=== PATIENT | male | born 1950 | race African-American/Black ===

== ENCOUNTER 2023-10-22 14:33 | Outpatient (AMB) | payer MEDICARE, OTHER, SELFPAY ==
--- NOTE | 2023-10-22 14:07 | MHC.OFFVISPS ---
Intake Intake Visit Reasons: depression, panic attacks, ETHAN (generalized anxiety disorder) Medication List - Last Reconciled 10/22/23 by Puja Conley APRN apixaban (Eliquis) 5 mg PO BID atorvastatin 10 mg PO DAILY buspirone 10 mg PO TID cholecalciferol (vitamin D3) (Vitamin D3) 25 mcg PO DAILY folic acid PO lamotrigine ER 200 mg PO DAILY latanoprost 0.005% drroslyn ophthalmic (eye) lorazepam 0.5 mg PO DAILY losartan 100 mg PO DAILY mirtazapine 30 mg PO BEDTIME nifedipine ER 60 mg PO DAILY omeprazole 40 mg PO DAILY terazosin mg PO HPI- Psychiatric Chief Complaint: depression, panic attacks, ETHAN (generalized anxiety disorder) HPI Narrative: Pt reports mood is stable; He reports medications have helped him depression; he has low mood at times; low motivation; he tries to keep busy to cope; He reports anxiety and worry specifically about his 's health- she is falling frequently. Her doctors can not figure out why she is falling. He tries to protect her but the falls have happened without warning signs such as dizziness, gait imbalance, or sedation. Pt will try to attend her next MD appt to express his concern. . He reports less depression. He reports few panic attacks. Pt is sleeping well. Pt is adherent with meds; he takes the ativan approximately 2-3 times a week. He is taking lamictal- no rash-no side effects. Pt takes his BP daily and reports BP has been stable- pt is sleeping well; pt reports his Blood sugar has been stable; No SI and no HI. He reports no ETOH since April 2021. Past Psychiatric History: inpatient [place] retreat 2018; [facility] 2020 PHP/IOP [facility] fall of 2018 and 2020 (May) outpatient [facility] outpatient, Dr. Thakkar Jun-Jul 2019, started with this news writer September 2019 after going to [facility] with panic attack. Panic attacks: Yes Agoraphobia: No Separation anxiety disorder: No Social phobia: No Specific phobia: No Hypochondriasis: No Body dysmorphic disorder: No Obsessive compulsive disorder: No Generalized anxiety: Yes Post traumatic stress disorder: No Acute stress disorder: No Previous psychiatric history: Yes Previous inpatient psychiatric hospitalization: Yes Other previous psychiatric treatment programs: intensive outpatient program History of suicidal ideation: Yes History of suicide attempt: No Medically hospitalized: Yes History of self injurious behavior: No History of violence: No Current/previous psychiatrist: Yael Current/previous therapist: none Subjective Subjective Subjective Medication Compliance: Yes Side effects from medications: No Review of Systems Medical Review of Systems: unchanged Mental Status Exam Mental Status Exam Patient Appearance: Well Grooomed and Appropriate Patient Orientation: Person, Place, Time and Situation Level of Consciousness: Awake and Alert Patient Behavior: Appropriate and Anxious Mood Description: Anxious and Nervous Affect Description: Anxious Patient Cognition Impaired: No Ability to Follow Directions: Good Speech Pattern: Clear Hallucinations: None Thought Process: Intact and Goal Oriented Thought Content: positive for Intact and positive for Goal Oriented Judgement: Fair Assessment and Plan Assessment & Plan (1) Generalized anxiety disorder: Code(s): F41.1 - Generalized anxiety disorder (2) Panic attacks: Status: Acute Code(s): F41.0 - Panic disorder [episodic paroxysmal anxiety] (3) Major depressive disorder, recurrent, moderate: Status: Acute Code(s): F33.1 - Major depressive disorder, recurrent, moderate Plan continue current prescribed medications increase fluid intake return in 2 months Medications: New buspirone 15 mg (1.5 x 10 mg) PO BID 90 tabs 2RF lamotrigine ER 200 mg PO DAILY 30 tabs 2RF folic acid 0.4 mg PO DAILY 30 tabs 2RF lorazepam 0.5 mg PO DAILY PRN 30 tabs 2RF severe anxiety mirtazapine 15 mg (1/2 x 30 mg) PO BEDTIME 15 tabs 2RF Counseling and coordination of Care Pt. Self Management counseling: General coping skills and Problem solving Medication management counseling: Effectiveness, Side effects, Dosing range, Duration, Drug interaction and Adherence Diagnosis and Prognosis Counseling: Accuracy of diagnosis, Prognosis over time, Impact of diagnosis on life functions, Impact of family relationship, Problematic behaviors secondary to diagnosis and Adequacy of current interventions Details: I spent 30 minutes reviewing the record, seeing the patient and documenting in the medical record. Counseling provided to the patient/caregiver as outlined below. Addressed patient/caregiver concerns regarding current medication regime including effective adherence. Addressed patient/caregiver concerns regarding diagnosis and prognosis including accuracy of diagnosis, prognosis over time, impact of diagnosis. Addressed patient/caregiver concerns regarding impact of recent stressors. 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
== END 2023-10-22 18:47 | disposition home or self-care (01) ==
LOC: HO.HOP 14:33
PROVIDERS: PCP Internal Medicine; Visit Provider Clinical Nurse Specialist Psychiatric/Mental Health
DX: F41.1 Generalized anxiety disorder (principal); F41.0 Panic disorder [episodic paroxysmal anxiety]; F33.1 Major depressive disorder, recurrent, moderate
CPT/HCPCS: 99214

== ENCOUNTER → 2023-10-22 14:33 | Outpatient (BNVA) | payer MEDICARE, OTHER, SELFPAY | PROVIDERS: PCP Internal Medicine; Visit Provider Clinical Nurse Specialist Psychiatric/Mental Health | DX: F41.0 Panic disorder [episodic paroxysmal anxiety] (principal); F41.1 Generalized anxiety disorder; F33.1 Major depressive disorder, recurrent, moderate; Z71.89 Other specified counseling | CPT/HCPCS: 99212 ==

== ENCOUNTER 2023-12-09 11:43 | Outpatient (AMB) | payer MEDICARE, OTHER, SELFPAY ==
--- NOTE | 2023-12-09 10:51 | MHC.OFFVISPS ---
Intake Intake Visit Reasons: anxiety, depression Community Health Planning Director Required: No Medication List - Last Reconciled 12/09/23 by Puja Conley APRN apixaban (Eliquis) 5 mg PO BID atorvastatin 10 mg PO DAILY buspirone 15 mg (1.5 x 10 mg) PO BID cholecalciferol (vitamin D3) (Vitamin D3) 25 mcg PO DAILY folic acid 0.4 mg PO DAILY lamotrigine ER 200 mg PO DAILY latanoprost 0.005% drps ophthalmic (eye) lorazepam 0.5 mg PO DAILY PRN losartan 100 mg PO DAILY mirtazapine 15 mg (1/2 x 30 mg) PO BEDTIME nifedipine ER 60 mg PO DAILY omeprazole 40 mg PO DAILY terazosin mg PO HPI- Psychiatric Chief Complaint: anxiety, depression HPI Narrative: pt doing well overall; mood stable; less anxious and less worried; no SI or HI; no medical changes. Past Psychiatric History: inpatient [place] retreat 2018; [facility] fall and 2020 (May) outpatient [facility] outpatient, Dr. Thakkar Jul 2019, started with this senior technical writer September 2019 after going to [facility] with panic attack. Subjective Subjective Subjective Medication Compliance: Yes Side effects from medications: No Review of Systems Medical Review of Systems: unchanged Mental Status Exam Mental Status Exam Patient Appearance: Well Grooomed and Appropriate Patient Orientation: Person, Place, Time and Situation Level of Consciousness: Awake Patient Behavior: Appropriate Mood Description: Calm Affect Description: Calm Patient Cognition Impaired: No Ability to Follow Directions: Good Speech Pattern: Clear and Appropriate Hallucinations: None Delusions: Not Present Thought Process: Intact Thought Content: positive for Intact Judgement: Fair Assessment and Plan Assessment & Plan (1) Major depressive disorder, recurrent, moderate: Status: Acute Code(s): F33.1 - Major depressive disorder, recurrent, moderate (2) Panic attacks: Status: Acute Code(s): F41.0 - Panic disorder [episodic paroxysmal anxiety] Medications: New cholecalciferol (vitamin D3) (Vitamin D3) 25 mcg PO DAILY 90 tabs 0RF Refilled buspirone 15 mg (1.5 x 10 mg) PO BID 90 tabs 2RF lamotrigine ER 200 mg PO DAILY 30 tabs 2RF folic acid 0.4 mg PO DAILY 30 tabs 2RF lorazepam 0.5 mg PO DAILY PRN 30 tabs 2RF severe anxiety mirtazapine 15 mg (1/2 x 30 mg) PO BEDTIME 15 tabs 2RF Counseling and coordination of Care Pt. Self Management counseling: Maintenance-social rhythm, Mod caffeine/ETOH intake, Sleep hygiene, Behavior activation and General coping skills Diagnosis and Prognosis Counseling: Accuracy of diagnosis, Prognosis over time, Impact of diagnosis on life functions, Impact of family relationship, Problematic behaviors secondary to diagnosis and Adequacy of current interventions Details: I spent 30 minutes reviewing the record, seeing the patient and documenting in the medical record. Counseling provided to the patient/caregiver as outlined below. Addressed patient/caregiver concerns regarding current medication regime including effective adherence. Addressed patient/caregiver concerns regarding diagnosis and prognosis including accuracy of diagnosis, prognosis over time, impact of diagnosis. Addressed patient/caregiver concerns regarding impact of recent stressors. 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
== END 2023-12-09 11:44 | disposition home or self-care (01) ==
LOC: HO.HOP 11:44
PROVIDERS: PCP Internal Medicine; Visit Provider Clinical Nurse Specialist Psychiatric/Mental Health
DX: F33.1 Major depressive disorder, recurrent, moderate (principal); F41.0 Panic disorder [episodic paroxysmal anxiety]
CPT/HCPCS: 99214

== ENCOUNTER → 2023-12-09 11:43 | Outpatient (BNVA) | payer MEDICARE, OTHER, SELFPAY | PROVIDERS: PCP Internal Medicine; Visit Provider Clinical Nurse Specialist Psychiatric/Mental Health | DX: F33.1 Major depressive disorder, recurrent, moderate (principal); F41.0 Panic disorder [episodic paroxysmal anxiety] | CPT/HCPCS: 99212 ==

== ENCOUNTER 2024-03-09 11:09 | Outpatient (AMB) | payer MEDICARE, OTHER, SELFPAY ==
--- NOTE | 2024-03-09 11:22 | A.OFFPSYCH_ITS ---
Intake Intake Visit Reasons: depression Street Light Cleaner Required: No Medication List - Last Reconciled 03/09/24 by Puja Conley APRN apixaban (Eliquis) 5 mg PO BID atorvastatin 10 mg PO DAILY buspirone 15 mg (1.5 x 10 mg) PO BID cholecalciferol (vitamin D3) (Vitamin D3) 25 mcg PO DAILY folic acid 0.4 mg PO DAILY lamotrigine ER 200 mg PO DAILY latanoprost 0.005% drroslyn ophthalmic (eye) lorazepam 0.5 mg PO DAILY PRN losartan 100 mg PO DAILY mirtazapine 15 mg (1/2 x 30 mg) PO BEDTIME nifedipine ER 60 mg PO DAILY omeprazole 40 mg PO DAILY terazosin mg PO HPI- Psychiatric Chief Complaint: depression HPI Narrative: pt reports mood stable; anxiety has been mild and he feels its been manageable; it increases in the evening and he has some trouble falling asleep and staying asleep. he wakes 2-4 times a night most nights- he is not sure what wakes him but does feel tired in am. Past Psychiatric History: inpatient [place] retreat 2018; [facility], Dr. Thakkar Jun-Jul 2019, started with this automotive service writer September 2019 after going to [facility] with panic attack. Subjective Subjective Subjective Medication Compliance: Yes Side effects from medications: No Review of Systems Medical Review of Systems: unchanged Mental Status Exam Mental Status Exam Patient Appearance: Well Grooomed and Appropriate Patient Orientation: Person, Place, Time and Situation Level of Consciousness: Awake and Alert Patient Behavior: Appropriate Mood Description: Calm and Appropriate Affect Description: Calm and Appropriate Patient Cognition Impaired: No Ability to Follow Directions: Good Speech Pattern: Clear Memory Description: Intact Hallucinations: None Delusions: Not Present Thought Process: Intact Thought Content: positive for Intact Judgement: Fair Assessment and Plan Assessment & Plan (1) Major depressive disorder, recurrent, moderate: Status: Acute Code(s): F33.1 - Major depressive disorder, recurrent, moderate (2) Panic attacks: Status: Acute Code(s): F41.0 - Panic disorder [episodic paroxysmal anxiety] Plan trial of trazodone 50 mg at bedtime continue other meds as prescribed. return in 2 months Medications: New trazodone 50 mg PO BEDTIME 30 tabs 2RF Refilled lamotrigine ER 200 mg PO DAILY 30 tabs 2RF lorazepam 0.5 mg PO DAILY PRN 30 tabs 2RF severe anxiety buspirone 15 mg (1.5 x 10 mg) PO BID 90 tabs 2RF mirtazapine 15 mg (1/2 x 30 mg) PO BEDTIME 15 tabs 2RF Counseling and coordination of Care Pt. Self Management counseling: Maintenance-social rhythm, Mod caffeine/ETOH intake and Sleep hygiene Medication management counseling: Effectiveness, Side effects, Dosing range, Duration, Drug interaction and Adherence Diagnosis and Prognosis Counseling: Accuracy of diagnosis, Prognosis over time, Impact of diagnosis on life functions, Impact of family relationship, Problematic behaviors secondary to diagnosis and Adequacy of current interventions Details: I spent 30 minutes reviewing the record, seeing the patient and documenting in the medical record. Counseling provided to the patient/caregiver as outlined below. Addressed patient/caregiver concerns regarding current medication regime including effective adherence. Addressed patient/caregiver concerns regarding diagnosis and prognosis including accuracy of diagnosis, prognosis over time, impact of d iagnosis. Addressed patient/caregiver concerns regarding impact of recent stressors. 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
== END 2024-03-09 15:09 | disposition home or self-care (01) ==
LOC: HO.HOP 11:09
PROVIDERS: PCP Internal Medicine; Visit Provider Clinical Nurse Specialist Psychiatric/Mental Health
DX: F33.1 Major depressive disorder, recurrent, moderate (principal); F41.0 Panic disorder [episodic paroxysmal anxiety]
CPT/HCPCS: 99214

== ENCOUNTER → 2024-03-09 11:09 | Outpatient (BNVA) | payer MEDICARE, OTHER, SELFPAY | PROVIDERS: PCP Internal Medicine; Visit Provider Clinical Nurse Specialist Psychiatric/Mental Health | DX: F33.1 Major depressive disorder, recurrent, moderate (principal); F41.0 Panic disorder [episodic paroxysmal anxiety]; Z71.89 Other specified counseling | CPT/HCPCS: 99212 ==

== ENCOUNTER 2024-06-06 14:41 | Outpatient (AMB) | payer MEDICARE, OTHER, SELFPAY ==
--- NOTE | 2024-06-06 14:08 | MHC.OFFVISPS ---
Intake Intake Visit Reasons: depression An/Syq 13 Nav/C2 Operator Required: Yes Provided:: Language: and An/Syq 13 Nav/C2 Operator Medication List - Last Reconciled 06/06/24 by Puja Conley APRN apixaban (Eliquis) 5 mg PO BID atorvastatin 10 mg PO DAILY buspirone 15 mg (1.5 x 10 mg) PO BID cholecalciferol (vitamin D3) (Vitamin D3) 25 mcg PO DAILY folic acid 0.4 mg PO DAILY lamotrigine ER 200 mg PO DAILY latanoprost 0.005% drps ophthalmic (eye) lorazepam 0.5 mg PO DAILY PRN losartan 100 mg PO DAILY magnesium oxide 400 mg PO DAILY metoprolol tartrate 25 mg PO BID mirtazapine 15 mg (1/2 x 30 mg) PO BEDTIME nifedipine ER 60 mg PO DAILY omeprazole 40 mg PO DAILY terazosin mg PO trazodone 50 mg PO BEDTIME HPI- Psychiatric Chief Complaint: depression HPI Narrative: pt reports mood stable; he feels tired sometimes and is not sleeping well; no depression; no significant anxiety; pt reports no ETOH use in 3 yrs. looking forward to activities this winter; planned a trip to [employer] with . Discussed he may not need as much lamotrigine as in past as mood is stable and no EtOH use. lamictal can cause insomnia sometime so we agreed to trial reduction Past Psychiatric History: [facility] [place] retreat 2018[facility] outpatient [facility] outpatient, Dr. Thakkar Jul 2019, started with this specification writer September 2019 after going to [facility] with panic attack. Subjective Subjective Subjective Medication Compliance: Yes Side effects from medications: No Review of Systems Medical Review of Systems: unchanged Mental Status Exam Mental Status Exam Patient Appearance: Well Grooomed and Appropriate Patient Orientation: Person, Place, Time and Situation Level of Consciousness: Awake and Appropriate Patient Behavior: Appropriate and Cooperative Mood Description: Calm Affect Description: Calm Patient Cognition Impaired: No Ability to Follow Directions: Excellent Speech Pattern: Clear Memory Description: Intact Hallucinations: None Delusions: Not Present Thought Process: Intact and Goal Oriented Thought Content: positive for Intact and positive for Goal Oriented Judgement: Good Assessment and Plan Assessment & Plan (1) Major depressive disorder, recurrent, moderate: Status: Acute Code(s): F33.1 - Major depressive disorder, recurrent, moderate (2) Panic attacks: Status: Acute Code(s): F41.0 - Panic disorder [episodic paroxysmal anxiety] Plan trial reduction in lamictal from 200mg to 150 mg dialy will try to get recent labs done at [facility] Medications: New lamotrigine ER (Lamictal XR) 50 mg PO DAILY 90 tabs 0RF lamotrigine ER (Lamictal XR) 100 mg PO DAILY 90 tabs 0RF Refilled buspirone 15 mg (1.5 x 10 mg) PO BID 90 tabs 2RF folic acid 0.4 mg PO DAILY 30 tabs 2RF lorazepam 0.5 mg PO DAILY PRN 30 tabs 2RF severe anxiety mirtazapine 15 mg (1/2 x 30 mg) PO BEDTIME 15 tabs 2RF trazodone 50 mg PO BEDTIME 30 tabs 2RF Discontinued lamotrigine ER Discontinued Reason: Doctor's Order 200 mg PO DAILY 90 tabs 1RF Counseling and coordination of Care Pt. Self Management counseling: Maintenance-social rhythm, Mod caffeine/ETOH intake, Sleep hygiene, Behavior activation, General coping skills and Problem solving Medication management counseling: Effectiveness, Side effects, Dosing range, Duration, Drug interaction and Adherence Diagnosis and Prognosis Counseling: Accuracy of diagnosis, Prognosis over time, Impact of diagnosis on life functions, Impact of family relationship, Problematic behaviors secondary to diagnosis and Adequacy of current interventions Details: I spent 40 minutes reviewing the record, seeing the patient and documenting in the medical record. Counseling provided to the patient/caregiver as outlined below. Addressed patient/caregiver concerns regarding current medication regime including effective adherence. Addressed patient/caregiver concerns regarding diagnosis and prognosis including accuracy of diagnosis, prognosis over time, impact of diagnosis. Addressed patient/caregiver concerns regarding impact of recent stressors. 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
== END 2024-06-06 16:24 | disposition home or self-care (01) ==
LOC: HO.HOP 14:41
PROVIDERS: PCP Internal Medicine; Visit Provider Clinical Nurse Specialist Psychiatric/Mental Health
DX: F33.1 Major depressive disorder, recurrent, moderate (principal); F41.0 Panic disorder [episodic paroxysmal anxiety]
CPT/HCPCS: 99214

== ENCOUNTER → 2024-06-06 14:41 | Outpatient (BNVA) | payer MEDICARE, OTHER, SELFPAY | PROVIDERS: PCP Internal Medicine; Visit Provider Clinical Nurse Specialist Psychiatric/Mental Health | DX: F33.1 Major depressive disorder, recurrent, moderate (principal); F41.0 Panic disorder [episodic paroxysmal anxiety]; Z71.89 Other specified counseling | CPT/HCPCS: 99212 ==

== ENCOUNTER 2024-07-31 14:35 | Outpatient (AMB) | payer MEDICARE, OTHER, SELFPAY ==
--- NOTE | 2024-07-31 14:45 | MHC.OFFVISPS ---
Intake Intake Visit Reasons: depression Parts Expediter Required: No Medication List - Last Reconciled 07/31/24 by Puja Conley APRN apixaban (Eliquis) 5 mg PO BID atorvastatin 10 mg PO DAILY buspirone 15 mg (1.5 x 10 mg) PO BID cholecalciferol (vitamin D3) (Vitamin D3) 25 mcg PO DAILY folic acid 0.4 mg PO DAILY lamotrigine ER (Lamictal XR) 50 mg PO DAILY lamotrigine ER (Lamictal XR) 100 mg PO DAILY latanoprost 0.005% drps ophthalmic (eye) lorazepam 0.5 mg PO DAILY PRN magnesium oxide 400 mg PO DAILY metoprolol tartrate 25 mg PO BID mirtazapine 15 mg (1/2 x 30 mg) PO BEDTIME nifedipine ER 60 mg PO DAILY omeprazole 40 mg PO DAILY trazodone 50 mg PO BEDTIME HPI- Psychiatric Chief Complaint: depression HPI Narrative: pt reports improved mood and anxiety; He is less depressed; he continues to have some anxiety; He feels nervous and anxious every day; he worries; he has trouble relaxing; He has been compliant with medications; He has had some BP instability and chest pain; He thinks the chest pain is from anxiety; He sees his steel tier in 2 weeks. No SI no HI no sedation, no dizzinees, no balance problems. No ETOH use x 3 years Past Psychiatric History: inpatient [place] retreat 2018; [facility] and 2020 (May) outpatient [facility] outpatient, Dr. Thakkar Jun-Jul 2019, started with this teletypewriter installer September 2019 after going to [facility] with panic attack. Subjective Subjective Subjective Medication Compliance: Yes Side effects from medications: No Review of Systems Medical Review of Systems: unchanged Mental Status Exam Mental Status Exam Patient Appearance: Well Grooomed and Appropriate Patient Orientation: Person, Place, Time and Situation Level of Consciousness: Awake and Appropriate Patient Behavior: Appropriate and Cooperative Mood Description: Calm and Appropriate Affect Description: Calm and Appropriate Patient Cognition Impaired: No Ability to Follow Directions: Good Speech Pattern: Clear and Appropriate Memory Description: Intact Hallucinations: None Delusions: Not Present Thought Process: Intact and Goal Oriented Thought Content: positive for Intact and positive for Goal Oriented Judgement: Good Assessment and Plan Assessment & Plan (1) Chest pain due to psychological stress: Status: Acute Code(s): F43.9 - Reaction to severe stress, unspecified; R07.9 - Chest pain, unspecified (2) HTN (hypertension): Status: Acute Qualifiers: Hypertension type: unspecified Qualified Code(s): I10 - Essential (primary) hypertension Code(s): I10 - Essential (primary) hypertension (3) Major depressive disorder, recurrent, moderate: Status: Acute Code(s): F33.1 - Major depressive disorder, recurrent, moderate (4) Panic attacks: Status: Acute Code(s): F41.0 - Panic disorder [episodic paroxysmal anxiety] Plan plan as below ekg today retrun in6-8 weeks Medications: Changed From buspirone 15 mg (1.5 x 10 mg) PO BID 90 tabs 2RF To buspirone 20 mg (2 x 10 mg) PO BID 180 tabs 2RF From trazodone 50 mg PO BEDTIME 30 tabs 2RF To trazodone Take one to two at bedtime prn sleep orally bedtime PRN; 30 tabs 2RF sleep Refilled lamotrigine ER (Lamictal XR) 100 mg PO DAILY 90 tabs 0RF lorazepam 0.5 mg PO DAILY PRN 30 tabs 2RF severe anxiety mirtazapine 15 mg (1/2 x 30 mg) PO BEDTIME 15 tabs 2RF lamotrigine ER (Lamictal XR) 50 mg PO DAILY 90 tabs 0RF Orders: Orders ECG 12 lead EKG 07/31/24 F43.9 - Reaction to severe stress, unspecified, R07.9 - Chest pain, unspecified, I10 - Essential (primary) hypertension Counseling and coordination of Care Details: I spent [] minutes reviewing the record, seeing the patient and documenting in the medical record. Counseling provided to the patient/caregiver as outlined below. Addressed patient/caregiver concerns regarding current medication regime including effective adherence. Addressed patient/caregiver concerns regarding diagnosis and prognosis including accuracy of diagnosis, prognosis over time, impact of diagnosis. Addressed patient/caregiver concerns regarding impact of recent stressors. 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
--- OUTSIDE RECORDS SUMMARY | 2024-07-31 16:49 | XMS_ITS | Continuity of Care Document ---
Author Organization [facility] Address [address] [place] [address] Phone [phone] Social History Type Date Description Comments Sex Unknown Medical Devices Description No Information Available Encounters Description No Information Available Assessments Description No Information Available Plan of Treatment No Information Available Functional Status Description No Information Available Mental Status Description No Information Available Referrals Description No Information Available
== END 2024-07-31 15:03 | disposition home or self-care (01) ==
LOC: HO.HOP 14:35
PROVIDERS: PCP Internal Medicine; Visit Provider Clinical Nurse Specialist Psychiatric/Mental Health
DX: F43.9 Reaction to severe stress, unspecified (principal); R07.9 Chest pain, unspecified; I10 Essential (primary) hypertension; F33.1 Major depressive disorder, recurrent, moderate; F41.0 Panic disorder [episodic paroxysmal anxiety]
CPT/HCPCS: 99215

== ENCOUNTER → 2024-07-31 14:35 | Outpatient (REF) | payer MEDICARE, OTHER, SELFPAY ==
--- NOTE | 2024-07-31 15:17 | ECG_ITS ---
Test Reason : F43.9 Blood Pressure : / mmHG Vent. Rate : 054 BPM Atrial Rate : 054 BPM P-R Int : 204 ms QRS Dur : 080 ms QT Int : 422 ms P-R-T Axes : 107 011 048 degrees QTc Int : 400 ms Sinus bradycardia with Premature atrial complexes Borderline ECG No previous ECGs available Referred By: Puja Conley Electronically Signed By:LANA MAYER
--- OUTSIDE RECORDS SUMMARY | 2024-07-31 17:11 | XMS_ITS | Continuity of Care Document ---
Author Organization [facility] Address [address] [place] [address] Phone [phone] Social History Type Date Description Comments Sex Unknown Medical Devices Description No Information Available Encounters Description No Information Available Assessments Description No Information Available Plan of Treatment No Information Available Functional Status Description No Information Available Mental Status Description No Information Available Referrals Description No Information Available
== END ==
LOC: HO.CARD 14:35
PROVIDERS: PCP Internal Medicine; Visit Provider Clinical Nurse Specialist Psychiatric/Mental Health
DX: F43.9 Reaction to severe stress, unspecified (principal); R07.9 Chest pain, unspecified; I10 Essential (primary) hypertension; F33.1 Major depressive disorder, recurrent, moderate; F41.0 Panic disorder [episodic paroxysmal anxiety]; Z79.899 Other long term (current) drug therapy
CPT/HCPCS: 93005; 99212

== ENCOUNTER → 2024-07-31 15:17 | Outpatient (BNV) | payer MEDICARE, OTHER, SELFPAY | PROVIDERS: PCP Internal Medicine; Visit Provider Internal Medicine | DX: R00.1 Bradycardia, unspecified (principal) | CPT/HCPCS: 93010 ==

== ENCOUNTER 2024-09-15 12:52 | Outpatient (AMB) | payer MEDICARE, OTHER, SELFPAY ==
--- NOTE | 2024-09-15 12:58 | MHC.OFFVISPS ---
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 Required: No Medication List - Last Reconciled 09/15/24 by Puja Conley APRN apixaban (Eliquis) 5 mg PO BID atorvastatin 10 mg PO DAILY buspirone 20 mg (2 x 10 mg) PO BID cholecalciferol (vitamin D3) (Vitamin D3) 25 mcg PO DAILY folic acid 0.4 mg PO DAILY lamotrigine ER (Lamictal XR) 100 mg PO DAILY lamotrigine ER (Lamictal XR) 50 mg PO DAILY latanoprost 0.005% drps ophthalmic (eye) lorazepam 0.5 mg PO DAILY PRN magnesium oxide 400 mg PO DAILY metoprolol tartrate 25 mg PO BID mirtazapine 15 mg (1/2 x 30 mg) PO BEDTIME nifedipine ER 60 mg PO DAILY omeprazole 40 mg PO DAILY trazodone Take one to two at bedtime prn sleep orally bedtime PRN; HPI- Psychiatric Chief Complaint: depression HPI Narrative: pt reports mood stable; his PHQ9= 7 and GAD7= 6. He reports he saw narrow fabric loom fixer Dr Cameron at [facility] at [address] [place] [address]. He started him back on losartan and kept him on metoprolol; pt is not sure what dose. Pt will see Dr He his PCP soon. Pt has been taking his BP 3-4 times a day and it runs 120/68 to 134/70. HR runs 50-70 when he checks it. Past Psychiatric History: inpatient [place] [facility] 2018; [facility] IOP 2020 PHP/IOP [facility] fall and 2020 (May) outpatient [facility] outpatient, Dr. Thakkar Jul 2019, started with this bid writer September 2019 after going to [place] with panic attack. Subjective Subjective Subjective Medication Compliance: Yes Side effects from medications: No Review of Systems Medical Review of Systems: unchanged Mental Status Exam Mental Status Exam Patient Appearance: Well Grooomed Patient Orientation: Person, Place and Situation Level of Consciousness: Awake Patient Behavior: Appropriate Mood Description: Appropriate and Anxious Affect Description: Appropriate and Anxious Patient Cognition Impaired: No Ability to Follow Directions: Good Speech Pattern: Clear, Coherent and Delayed Memory Description: Intact Hallucinations: None Delusions: Not Present Thought Process: Intact and Goal Oriented Thought Content: positive for Intact and positive for Goal Oriented Judgement: Good Assessment and Plan Assessment & Plan (1) Major depressive disorder, recurrent, moderate: Status: Acute Code(s): F33.1 - Major depressive disorder, recurrent, moderate Plan resume lamictal r 200mg daily as pt felt better on higher dose Medications: New lamotrigine ER (Lamictal XR) 200 mg PO DAILY 90 tabs 1RF Discontinued lamotrigine ER Discontinued Reason: Patient Refused 100 mg PO DAILY 90 tabs 0RF lamotrigine ER Discontinued Reason: Patient Refused 50 mg PO DAILY 90 tabs 0RF Counseling and coordination of Care Pt. Self Management counseling: Maintenance-social rhythm, Mod caffeine/ETOH intake, Sleep hygiene, Behavior activation and General coping skills Medication management counseling: Effectiveness, Side effects, Dosing range, Duration, Drug interaction and Adherence Diagnosis and Prognosis Counseling: Accuracy of diagnosis, Prognosis over time, Impact of diagnosis on life functions, Impact of family relationship, Problematic behaviors secondary to diagnosis and Adequacy of current interventions Details: I spent 30 minutes reviewing the record, seeing the patient and documenting in the medical record. Counseling provided to the patient/caregiver as outlined below. Addressed patient/caregiver concerns regarding current medication regime including effective adherence. Addressed patient/caregiver concerns regarding diagnosis and prognosis including accuracy of diagnosis, prognosis over time, impact of diagnosis. Addressed patient/caregiver concerns regarding impact of recent stressors. 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
--- OUTSIDE RECORDS SUMMARY | 2024-09-15 13:23 | XMS_ITS | Continuity of Care Document ---
Author Organization [facility] [address] [place] [address] Phone [phone] Social History Type Date Description Comments Sex Unknown Medical Devices Description No Information Available Encounters Description No Information Available Assessments Description No Information Available Plan of Treatment No Information Available Functional Status Description No Information Available Mental Status Description No Information Available Referrals Description No Information Available
--- OUTSIDE RECORDS SUMMARY | 2024-09-15 13:23 | XMS_ITS | Encounter Summary ---
Author Organization [facility] Address [address] [place] [address] Care Team Providers Care Bankruptcy Attorney Name Role Phone Philippe He MD Primary Care Provider [phone] Reason for Visit * Reason Comments Follow-up Encounter Details Date Type Department Care Team (Latest Contact Info) Description 08/22/2024 2:30 PM EST Office Visit [facility] [address] [place] [address] Darien Cameron MD [address] [place] [address],[address] [address] Other emphysema (CMS/HCC) (Primary Dx); Primary hypertension; Persistent atrial fibrillation (CMS/HCC); TIA (transient ischemic attack); Pure hypercholesterolemia Social History Tobacco Use Types Packs/Day Years Used Date Smoking Tobacco: Former Cigarettes Smokeless Tobacco: Never Tobacco Cessation:Counseling Given: Not Answered Alcohol Use Standard Drinks/Week Comments Not Currently 0 (1 standard drink = 0.6 oz pur e alcohol) Sex and Gender Information Value Date Recorded Sex Assigned at Male 03/24/2024 3:00 PM EDT Legal Sex Male 10:59 PM EST Gender Identity Male 03/24/2024 3:00 PM EDT Sexual Orientation Straight 03/24/2024 3: 00 PM EDT documented as of this encounter Last Filed Vital Signs Vital Sign Reading Time Taken Comments Blood Pressure 120/80 08/22/2024 2:27 PM EST Pulse 57 08/22/2024 2:27 PM EST Temperature - - Respiratory Rate - - Oxygen Saturation 92% 08/22/2024 2:27 PM EST Inhaled Oxygen Concentration - - Weight 107 kg (235 lb 4.8 oz) 08/22/2024 2:27 PM EST Height 193 cm (6' 4 ) 08/22/2024 2:27 PM EST Body Mass Index 28.64 08/22/2024 2:27 PM EST documented in this encounter Ordered Prescriptions Prescription Sig Dispense Quantity Refills Last Filled Start Date End Date losartan (Cozaar) 100 mg tabletIndications: Primary hypertension Take 1 tablet (100 mg total) by mouth 1 (one) time each day. 90 each 3 08/22/2024 08/22/2025 metoprolol tartrate (LOPRESSOR) 100 mg tabletIndications: Primary hypertension Take 1 tablet (100 mg total) by mouth 2 (two) times a day. 180 each 3 08/22/2024 08/17/2025 documented in this encounter Progress Notes * Darien Cameron MD - 08/22/2024 2:30 PM ESTAssociated Problem(s): COPD (chronic obstructive pulmonary disease) ([facility]) * Darien Cameron MD - 08/22/2024 2:30 PM ESTAssociated Problem(s): HTN (hypertension) Somewhat labile in the past 2-3 weeks. He has been self-medicating based on BP at home. Orders: metoprolol tartrate (LOPRESSOR) 100 mg tablet; Take 1 tablet (100 mg total) by mouth 2 (two) times a day. losartan (Cozaar) 100 mg tablet; Take 1 tablet (100 mg total) by mouth 1 (one) time each day. Will instruct the patient to start losartan at 50 mg each evening and advance as necessary for BP control. * Darien Cameron MD - 08/22/2024 2:30 PM ESTAssociated Problem(s): A-fib (CMS/HCC) * Darien Cameron MD - 08/22/2024 2:30 PM ESTAssociated Problem(s): TIA (transient ischemic attack) * Darien Cameron MD - 08/22/2024 2:30 PM ESTAssociated Problem(s): HLD (hyperlipidemia) * Darien Cameron MD - 08/22/2024 2:30 PM EST PCP: Philippe He MD HPI: Hosea Tucker is a 74 y.o. old male who presents for follow-up three months after his last assessmenthere. History of Present Illness The patient is a very pleasant 74-year-old man with a past medical history of systemic hypertension, hyperlipidemia, COPD, DVT treated with Eliquis, alcohol use disorder, and more recently atrial flutter. I saw him in consultation in February 2024. The patient had just been hospitalized at [facility] with dyspnea and palpitations and was found to have atrial flutter. Echocardiography revealed a normal ejection fraction with normal regional wall motion and moderate concentric left ventricular hypertrophy. The left atrium was mildly dilated. Right ventricular global function was mildly depressed. There was no hemodynamically significant valvular disease. The ascending aorta was mildly dilated. Initially, it was felt that he had spontaneously converted to sinus rhythm but on further review, he appeared to have persistence of atrial flutter. I increased his metoprolol and made arrangements for outpatient cardioversion which successfully restored sinus rhythm. The patient was last seen in the office on May 16, 2024. He reported improvement in his overall stamina and reductionin dyspnea as he maintained sinus rhythm. He had stopped his losartan and decreased his metoprolol dose amidst concern about excessive medication. He reported two episodes of chest discomfort but wasgenerally feeling well. There was no clinical evidence of congestive heart failure at that time. [place] arrangements for outpatient nuclear stress testing which was normal. Medications were adjustedand the patient now returns for repeat clinical assessment. He reports a general sense of well-being with no complaints of chest discomfort or respiratory distress. However, he notes that his respiratory function, due to COPD, is contingent on his level of physical activity. He experiences shortness of breath during exertion but has not experienced any episodes of syncope. He describes intermittent episodes of sharp, transient chest pain, localized to the left of the midline, which he finds difficult to articulate. These episodes are infrequent and brief, lasting only a few minutes, and are not associated with any specific triggers. He does not experience any exacerbation of pain with deep inspiration. He also reports a sensation of heaviness in hischest, which he attributes to his GERD, but does not experience any associated pain. He has not noticed any abnormal bleeding. He has been self-adjusting his metoprolol dosage based on his blood pressure readings, which he monitors twice daily. His current regimen includes metoprolol 75 mg to 100 mg twice daily, nifedipine 60 mg in the morning, and terazosin twice daily. He was previously on losartan, but this was discontinued when metoprolol was initiated. He has previously tried diuretics butdiscontinued them due to adverse effects including dry mouth and sleep disturbances. He reports no renal issues. He believes that his previous regimen of nifedipine in the morning and losartan at night was effective in controlling his blood pressure. MEDICATIONS Current: metoprolol, nifedipine, terazosin, Eliquis Discontinued: losartan ACTIVE MEDICATIONS: Outpatient Medications Marked as Taking for the 08/22/24 encounter (Office Visit) with Darien Cameron MD Medication Sig Dispense Refill albuterol HFA (PROVENTIL HFA;VENTOLIN HFA) 108 (90 Base) MCG/ACT inhaler Inhale into the lungs as needed. apixaban (ELIQUIS) 5 mg tablet Take 5 mg by mouth 2 times daily atorvastatin (LIPITOR) 10 mg tablet Take 1 Tablet by mouth daily. buPROPion SR (WELLBUTRIN SR) 200 mg 12 hr tablet Take 1 tablet (200 mg total) by mouth 2 (two) times a day. Do not crush, chew, or split. busPIRone (BUSPAR) 30 mg tablet Take 1 Tablet by mouth 2 times daily. DIETARY SUPPLEMENT ORAL VITAMIN D OR Take by mouth. lamoTRIgine (LaMICtal XR) 200 mg tablet extended release 24hr 24 hr tablet Take 1 tablet (200 mg total) by mouth 1 (one) time each day. magnesium oxide (MAG-OX) 400 mg magnesium tablet Take 1 Tablet by mouth daily for 360 days. mirtazapine (REMERON BEHZAD-TAB) 15 mg disintegrating tablet Take 1 Tablet by mouth at bedtime. multivitamin (Multiple Vitamins) tablet Take by mouth. NIFEdipine CC (ADALAT CC) 60 mg 24 hr tablet Take 1 Tablet by mouth daily. omeprazole (PriLOSEC) [address] capsule Take 1 Capsule by mouth daily. terazosin (HYTRIN) 2 mg capsule Take 1 Capsule by mouth 2 times daily. vitamin B complex (B COMPLEX ORAL) Take by mouth. [DISCONTINUED] metoprolol tartrate (LOPRESSOR) 25 mg tablet Patient's been taking 75mg to 100mg twice a day based on bp PAST MEDICAL HISTORY: Patient Active Problem List Diagnosis Date Noted Date Diagnosed A-fib ([facility]) 03/17/2024 Atrial flutter ([facility]) 03/17/2024 COPD (chronic obstructive pulmonary disease) ([facility]) 03/17/2024 HLD (hyperlipidemia) 03/17/2024 HTN (hypertension) 03/17/2024 SOB (shortness of breath) 03/17/2024 TIA (transient ischemic attack) 03/17/2024 Resolved Problems No resolved problems to display. ALLERGIES: No Known Allergies FAMILY HISTORY: No family history on file. SOCIAL HISTORY: Social History Tobacco Use Smoking status: Former Types: Cigarettes Smokeless tobacco: Never Substance Use Topics Alcohol use: Not Currently REVIEW OF SYSTEMS: ROS PHYSICAL EXAM: Vitals: 08/22/24 1427 BP: 120/80 BP Location: Left arm Patient Position: Sitting BP Cuff Size: Adult Pulse: 57 SpO2: 92% Weight: 107 kg (235 lb 4.8 oz) Height: 1.93 m (76 ) APPEARANCE: Alert and in no acute distress, well-developed, well-nourished. EYES: PERRL, conjunctiva and sclera normal EARS: External ears normal. NOSE/SINUS: Nares normal. Septum midline. Mucosa normal. No drainage or sinus tenderness. MOUTH/THROAT: no erythema or exudates NECK: JVP less then 8cm H2O, No bruits., Neck supple, no adenopathy or mass HEART: RRR with normal S1 and S2, no murmurs, no gallops, no JVD appreciated CHEST: non-tender LUNG: clear to auscultation ABDOMEN: Bowel sounds normoactive, no bruits, soft, non-tender, without organomegaly or palpable masses EXTREMITIES: Extremities warm and well perfused without clubbing, cyanosis, or edema NEURO: Awake, alert and oriented x 3 and Normal gait SKIN: Skin color, texture, turgor normal. No rashes or lesions. EKG: REDUCING SALON ATTENDANT TESTIN06/06/24 NM STRESS TEST WITH MYOCARDIAL PERFUSION 06/06/2024, 06/06/2024 06/06/2024 Interpretation Summary This is a probably normal regadenoson nuclear myocardial perfusion study. There is no definitive reversible or fixed perfusion defect to suggest ischemia or infarct. Normal left ventricular size and systolic function with LVEF 62% at rest and 64% with stress. Stress Test Interpretation: 1. The patient had no chest pain. 2. No ECG changes with stress that are diagnostic for ischemia. 3. The patient had occasional PACs. Signed by: Leigha Garcia NP on 06/06/2024 12:14 PM, Signed by: Sergey Stoner MD on 06/06/2024 4:32 PM ASSESSMENT/PLAN: Assessment & Plan Other emphysema (CMS/HCC) Primary hypertension Somewhat labile in the past 2-3 weeks. He has been self-medicating based on BP at home. Orders: metoprolol tartrate (LOPRESSOR) 100 mg tablet; Take 1 tablet (100 mg total) by mouth 2 (two) times a day. losartan (Cozaar) 100 mg tablet; Take 1 tablet (100 mg total) by mouth 1 (one) time each day. Will instruct the patient to start losartan at 50 mg each evening and advance as necessary for BP control. Persistent atrial fibrillation (CMS/HCC) TIA (transient ischemic attack) Pure hypercholesterolemia Assessment & Plan 1. Atrial Flutter. His cardiac function has shown significant improvement, with a successful presybeterian of normal sinus rhythm post-cardioversion. The nuclear stress test conducted in May 2024 yielded satisfactory results. He will continue with metoprolol tartrate 100 mg twice daily. A prescription for a 3-month supply of metoprolol tartrate 100 mg, with 3 refills, will be provided. 2. Systemic Hypertension. He will reintroduce losartan into his regimen, starting with his former dosage of 100 mg at night, starting at 50mg initially. He is advised to maintain a blood pressure log for review during his subsequent visit with Dr. He. 3. Chronic Obstructive Pulmonary Disease (COPD). His breathing is dependent on his activity level, and he gets winded easily. No changes to his current COPD management plan were discussed. 4. Deep Vein Thrombosis (DVT). He has a history of DVT and is currently treated with Eliquis for PAFib. No changes to his current DVT management plan were discussed. He may safely interrupt Eliquis 2 to 3 days prior to anticipatedcolonoscopy. 5. Gastroesophageal Reflux Disease (GERD). He experiences chest discomfort and heaviness associated with GERD. No changes to his current GERD management plan were discussed. 6. Hyperlipidemia. No changes to his current hyperlipidemia management plan were discussed. 7. Alcohol Use Disorder. No changes to his current management plan for alcohol use disorder were discussed. PROCEDURE The patient underwent outpatient cardioversion in February 2024, which successfully restored sinus rhythm. I have obtained verbal consent from Hosea Deemarty prior to the recording. I have advised Hosea Tucker that he may refuse the recording and require the recording to be turned off at any time during this encounter. The [facility] team will continue to co-manage this patient following the plan of care as established by my initial visit and as per AHA guidelines for ongoing management and surveillance of fatigue, irregular heart beat, and palpitations. This will include medication titration, initiation of appropriate medications and further titration, and diagnostic studies to manage this disease process. documented in this encounter Plan of Treatment Not on file documented as of this encounter Visit Diagnoses Diagnosis Other emphysema (CMS/[facility])- Primary Other emphysema Primary hypertension Unspecified essential hypertension Persistent atrial fibrillation (CMS/HCC) Atrial fibrillation TIA (transient ischemic attack) Unspecified transient cerebral ischemia Pure hypercholesterolemia documented in this encounter Discontinued Medications Medication Sig Discontinue Reason Start Date End Da te metoprolol tartrate (LOPRESSOR) 25 mg tablet Patient's been taking 75mg to 100mg twice a day based on bp 08/22/2024 buPROPion SR (WELLBUTRIN SR) 150 mg 12 hr tablet Take 1 Tablet by mouth 2 times daily. Dose adjustment 08/22/2024 documented as of this encounter Historical Medications * This list may reflect changes made after this encounter. lamoTRIgine (LaMICtal XR) 200 mg tablet extended release 24hr 24 hr tablet Take 1 tablet (200 mg total) by mouth 1 (one) time each day. buPROPion SR (WELLBUTRIN SR) 200 mg 12 hr tablet Take 1 tablet (200 mg total) by mouth 2 (two) times a day. Do not crush, chew, or split. added in this encounter Care Teams Bankruptcy Attorney Relationship Specialty Start Date End Date Philippe He MD [address] PCP - General Internal Medicine 05/18/24 documented as of this encounter
--- OUTSIDE RECORDS SUMMARY | 2024-09-15 13:23 | XMS_ITS | Clinical Summary ---
Author Organization [facility] [employer] [facility] Address [address] [place] [address] Phone Care Team Providers Care Telecom Billing Analyst Name Role Phone Philippe He MD Primary Care Provider [phone] [phone] Allergies No known active allergies Medications magnesium oxide (MAG-OX) 400 mg magnesium tablet Take 1 Tablet by mouth daily for 360 days. Active atorvastatin (LIPITOR) 10 mg tablet Take 1 Tablet by mouth daily. Active omeprazole (PriLOSEC) [address] capsule Take 1 Capsule by mouth daily. Active albuterol HFA (PROVENTIL HFA;VENTOLIN HFA) 108 (90 Base) MCG/ACT inhaler Inhale into the lungs as needed. Active busPIRone (BUSPAR) 30 mg tablet Take 1 Tablet by mouth 2 times daily. Active apixaban (ELIQUIS) 5 mg tablet Take 5 mg by mouth 2 times daily Active mirtazapine (REMERON BEHZAD-TAB) 15 mg disintegrating tablet Take 1 Tablet by mouth at bedtime. Active multivitamin (Multiple Vitamins) tablet Take by mouth. Active terazosin (HYTRIN) 2 mg capsule Take 1 Capsule by mouth 2 times daily. Active vitamin B complex (B COMPLEX ORAL) Take by mouth. Active DIETARY SUPPLEMENT ORAL VITAMIN D OR Take by mouth. Active NIFEdipine CC (ADALAT CC) 60 mg 24 hr tablet Take 1 Tablet by mouth daily. Active buPROPion SR (WELLBUTRIN SR) 200 mg 12 hr tablet Take 1 tablet (200 mg total) by mouth 2 (two) times a day. Do not crush, chew, or split. Active lamoTRIgine (LaMICtal XR) 200 mg tablet extended release 24hr 24 hr tablet Take 1 tablet (200 mg total) by mouth 1 (one) time each day. Active metoprolol tartrate (LOPRESSOR) 100 mg tabletIndications :Primary hypertension Take 1 tablet (100 mg total) by mouth 2 (two) times a day. 180 each 3 08/22/19 25 026 Active losartan (Cozaar) 100 mg tabletIndications :Primary hypertension Take 1 tablet (100 mg total) by mouth 1 (one) time each day. 90 each 3 08/22/19 25 026 Active metoprolol tartrate (LOPRESSOR) 25 mg tablet Patient's been taking 75mg to 100mg twice a day based on bp 025 Discontinued buPROPion SR (WELLBUTRIN SR) 150 mg 12 hr tablet Take 1 Tablet by mouth 2 times daily. 025 Discontinued(Do se adjustment) Active Problems Problem Noted Date Diagnosed Date A-fib 03/17/2024 Assessment & Plan (08/22/2024 3:47 PM EST): Atrial flutter 03/17/2024 COPD (chronic obstructive pulmonary disease) Assessment & Plan (08/22/2024 3:47 PM EST): HLD (hyperlipidemia) 03/17/2024 Assessment & Plan (08/22/2024 3:47 PM EST): HTN (hypertension) 03/17/2024 Assessment & Plan (08/22/2024 3:47 PM EST): Somewhat labile in the past 2-3 weeks. [...] and advance as necessary for BP control. SOB (shortness of breath) 03/17/2024 TIA (transient ischemic attack) 03/17/2024 Assessment & Plan (08/22/2024 3:47 PM EST): Encounters Date Type Department Care Team Description 08/22/2024 2:30 PM EST Office Visit [facility] [address] [place] [phone] Darien Cameron MD Other emphysema (CMS/HCC) (Primary Dx); Primary hypertension; Persistent atrial fibrillation (CMS/HCC); TIA (transient ischemic attack); Pure hypercholesterolemia from Last 3 Months Social History Tobacco Use Types Packs/Day Years [...] Orientation Straight 03/24/2024 3: 00 PM EDT Obstetrics History Last Filed Vital Signs Vital Sign Reading [...] Mass Index 28.64 08/22/2024 2:27 PM EST Plan of Treatment Health Maintenance Due Date Last Done Comments DTaP,Tdap,and Td Vaccines (1 - Tdap) 1969 Pneumococcal Vaccine: 50+ Years (1 of 2 - PCV) 1969 Abdominal Aortic Aneurysm (AAA) Screen 06/28/2022 Cholesterol Screening (Lipid Panel) 06/28/2022 Colorectal Cancer Screening: Colonoscopy 06/28/2022 Depression Screening 06/28/2022 Falls Risk Assessment 06/28/2022 Hepatitis C Screening 06/28/2022 Medicare Annual Wellness Visit 06/28/2022 Social Influencers of Health Screening 06/28/2022 COVID-19 Vaccine ( season) 2024 05/10/2021, 10/06/2020, 09/13/2020 Hypertension/CHF/CAD Annual BMP Blood Test 05/18/2024 Zoster Vaccines Completed 04/08/2020, 07/2018, 05/12/2013 Influenza Vaccine Completed 04/24/2024, , 06/08/2022, Additional history exists RSV Immunization Patients 60+ Years Old Completed 04/24/2024 HIB Vaccines Aged Out No longer eligi ble based on patient's age to complete this topic HPV Vaccines Aged Out No longer eligi ble based on patient's age to complete this topic Hepatitis A Vaccines Aged Out No long er eligible based on patient's age to complete this topic Hepatitis B Vaccines Aged Out No long er eligible based on patient's age to complete this topic IPV Vaccines Aged Out No longer eligi ble based on patient's age to complete this topic MMR Vaccines Aged Out No longer eligi ble based on patient's age to complete this topic Meningococcal ACWY Vaccine Aged Out N o longer eligible based on patient's age to complete this topic Meningococcal B Vacine Aged Out No lo nger eligible based on patient's age to complete this topic RSV Immunization Patients Under 20 months Aged Out No longer eligible based on patient's age to complete this topic Varicella Vaccines Aged Out No longer eligible based on patient's age to complete this topic Insurance MEDICARE [facility] [place] [id number] Care Teams Telecom Billing Analyst Relationship Specialty Start Date End Date Philpipe He MD [address] PCP - General Internal Medicine 05/18/24
== END 2024-09-15 13:19 | disposition home or self-care (01) ==
LOC: HO.HOP 12:52
PROVIDERS: PCP Internal Medicine; Visit Provider Clinical Nurse Specialist Psychiatric/Mental Health
DX: F33.1 Major depressive disorder, recurrent, moderate (principal)
CPT/HCPCS: 99214

== ENCOUNTER → 2024-09-15 12:52 | Outpatient (BNVA) | payer MEDICARE, OTHER, SELFPAY | PROVIDERS: PCP Internal Medicine; Visit Provider Clinical Nurse Specialist Psychiatric/Mental Health | DX: F33.1 Major depressive disorder, recurrent, moderate (principal) | CPT/HCPCS: 99212 ==

== ENCOUNTER 2024-11-14 14:05 | Outpatient (AMB) | payer MEDICARE, OTHER, SELFPAY ==
--- NOTE | 2024-11-14 14:08 | A.OFFPSYCH_ITS ---
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: No Medication List - Last Reconciled 11/14/24 by Puja Conley, CYNTHIA apixaban (Eliquis) 5 mg PO BID atorvastatin 10 mg PO DAILY buspirone 20 mg (2 x 10 mg) PO BID cholecalciferol (vitamin D3) (Vitamin D3) 25 mcg PO DAILY folic acid 0.4 mg PO DAILY lamotrigine ER (Lamictal XR) 200 mg PO DAILY latanoprost 0.005% drps ophthalmic (eye) lorazepam 0.5 mg PO DAILY PRN magnesium oxide 400 mg PO DAILY metoprolol tartrate 25 mg PO BID mirtazapine 15 mg (1/2 x 30 mg) PO BEDTIME nifedipine ER 60 mg PO DAILY omeprazole 40 mg PO DAILY trazodone Take one to two at bedtime prn sleep orally bedtime PRN; HPI- Psychiatric Chief Complaint: depression HPI Narrative: pt here for follow up re: depression and anxiety. mood improved anxiety improved PHQ9=4 and GAD7=3 Pt reports no Side effects from mediction Pt reports his BP stable and he is scheduled for cardiac ablation November 28. Past Psychiatric History: inpatient [facility] 2018; [facility] PHP[facility]IOP [facility] fall and 2020 (May) outpatient [facility] outpatient, Dr. 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 Subjective Subjective Subjective Medication Compliance: Yes Side effects from medications: No Review of Systems Medical Review of Systems: unchanged Mental Status Exam Mental Status Exam Patient Appearance: Well Grooomed Patient Orientation: Person, Place, Time and Situation Level of Consciousness: Awake and Appropriate Patient Behavior: Appropriate and Cooperative Mood Description: Cheerful Affect Description: Cheerful Patient Cognition Impaired: No Ability to Follow Directions: Good Speech Pattern: Clear and Appropriate Memory Description: Intact Hallucinations: None Delusions: Not Present Thought Process: Intact and Goal Oriented Thought Content: positive for Intact and positive for Goal Oriented Judgement: Fair Assessment and Plan Assessment & Plan (1) Major depressive disorder, recurrent, moderate: Status: Acute Code(s): F33.1 - Major depressive disorder, recurrent, moderate (2) Panic attacks: Status: Acute Code(s): F41.0 - Panic disorder [episodic paroxysmal anxiety] Plan continue current meds return in 3 months Medications: Refilled lamotrigine ER (Lamictal XR) 200 mg PO DAILY 90 tabs 1RF mirtazapine 15 mg (1/2 x 30 mg) PO BEDTIME 15 tabs 2RF trazodone Take one to two at bedtime prn sleep orally bedtime PRN; 30 tabs 2RF sleep lorazepam 0.5 mg PO DAILY PRN 30 tabs 2RF severe anxiety folic acid 0.4 mg PO DAILY 30 tabs 2RF buspirone 20 mg (2 x 10 mg) PO BID 180 tabs 1RF Counseling and coordination of Care Pt. Self Management counseling: Maintenance-social rhythm, Mod caffeine/ETOH intake, Nutrition education and improvement, Sleep hygiene and Problem solving Medication management counseling: Effectiveness, Side effects, Dosing range, Duration, Drug interaction and Adherence Diagnosis and Prognosis Counseling: Accuracy of diagnosis, Prognosis over time, Impact of diagnosis on life functions and Adequacy of current interventions Details: I spent 35 minutes reviewing the record, seeing the patient and documenting in the medical record. Counseling provided to the patient/caregiver as outlined below. Addressed patient/caregiver concerns regarding current medication regime including effecti ve adherence. Addressed patient/caregiver concerns regarding diagnosis and prognosis including accuracy of diagnosis, prognosis over time, impact of diagnosis. Addressed patient/caregiver concerns regarding impact of recent stressors. 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
--- OUTSIDE RECORDS SUMMARY | 2024-11-14 16:56 | XMS_ITS | Encounter Summary ---
Author Organization [facility] Address [address] [place] [address] Care Team Providers Care Assistant Grocery Name Role Phone Philippe He MD Primary Care Provider [phone] [phone] Reason for Visit * Reason Comments Follow-up Encounter Details Date Type Department Care Team (Late st Contact Info) Description 11/09/2024 3:30 PM EDT Office Visit [facility] Cardiology [address] [place] [address] Ana Kimble MD [address] [place] [address] DR[address] [address] Typical atrial flutter (CMS/HCC V24, CMS/HCC V28) (Primary Dx); Other emphysema (CMS/HCC V24, CMS/HCC V28); TIA (transient ischemic attack); Pure hypercholesterolemia; Primary hypertension Social History Tobacco Use Types Packs/Day Years Used Date Smoking Tobacco: Former Cigarettes Smokeless Tobacco: Never Alcohol Use Standard Drinks/Week Comments Not Currently [...] Sign Reading Time Taken Comments Blood Pressure 118/68 11/09/2024 3:29 PM EDT Pulse 58 11/09/2024 3:29 PM EDT Temperature - - Respiratory Rate - - Oxygen Saturation 95% 11/09/2024 3:29 PM EDT Inhaled Oxygen Concentration - - Weight 108 kg (238 lb 14.4 oz) 11/09/2024 3:29 P M EDT Height 193 cm (6' 4 ) 11/09/2024 3:29 PM EDT Body Mass Index 29.08 11/09/2024 3:29 PM EDT documented in this encounter Progress Notes * Ana Kimble MD - 11/09/2024 3:30 PM EDTAssociated Problem(s): Atrial flutter (CMS/HCC V24, CMS/HCC V28) Patient has had highly symptomatic typical atrial flutter requiring cardioversion. He has preservedleft ventricular function and no evidence of significant valvular disease. He is scheduled for an ablation procedure for his atrial flutter to be performed at [facility] on December 01, 2024. All questions have been answered. Orders: ECG 12 lead * Ana Kimble MD - 11/09/2024 3:30 PM EDTAssociated Problem(s): COPD (chronic obstructive pulmonary disease) (CMS/HCC V24, CMS/HCC V28) Longstanding and stable COPD without recent exacerbation. * Ana Kimble MD - 11/09/2024 3:30 PM EDTAssociated Problem(s): TIA (transient ischemic attack) Resolved without recurrence. Patient is maintained on Eliquis in the setting of atrial flutter and prior DVT. Orders: ECG 12 lead * Ana Kimble MD - 11/09/2024 3:30 PM EDTAssociated Problem(s): HLD (hyperlipidemia) Will continue lipid-lowering therapy. Defer follow-up to the primary care team. Orders: ECG 12 lead * Ana Kimble MD - 11/09/2024 3:30 PM EDTAssociated Problem(s): HTN (hypertension) Excellent control on his present medical regimen. No changes are recommended at this time. Orders: ECG 12 lead * Ana Kimble MD - 11/09/2024 3:30 PM EDT PCP: Philippe He MD HPI: Hosea Tucker is a delightful 74-year-old -Israeli gentleman with a history of hypertension, hyperlipidemia, COPD, prior DVT treated with anticoagulation who has had recurrent atrial flutter episodes. He had 1 back in February that required a cardioversion. He was placed on increased dose of met oprolol with a resting heart rate around 50 and he had recurrent atrial flutter in September and required a second cardioversion. He was well rate controlled with a resting heart rate in the 80s but he said his heart rate would jump 250 very easily. An echocardiogram showed normal left ventricular function with moderate concentric LVH mildly enlarged left atrium and a borderline enlarged aorta. Thereis a history of heavy alcohol use but not for several years. He is on multiple blood pressure medicines which she is tolerating well. He expressed some concern when his heart rate gets down to 50 or below in taking the metoprolol. He has no history of thyroid disease. He is on a lipid-lowering medications. There is a history of a prior TIA of unclear etiology. No atrial fibrillation that I can find. Both ECGs from his cardioversions showed atrial flutter. He was evaluated recently by Dr. Mark and is scheduled for outpatient Aflutter ablation by Dr. Mark on December 01, 2024. Since his cardioversion, he has felt very well. The patient does not report any symptoms to suggestangina pectoris, exertional breathlessness or effort intolerance. The patient has not experienced palpitations, lightheadedness or syncope. Patient is not reporting any orthopnea, paroxysmal nocturnal dyspnea, peripheral edema, or symptoms to suggest claudication, TIA or stroke. Overall stamina is well preserved. No bleeding issues. Compliant with med regimen. ACTIVE MEDICATIONS: Outpatient Medications Marked as Taking for the 11/09/24 encounter (Office Visit) with Ana Kimble MD Medication Sig Dispense Refill albuterol HFA [...] 1 Tablet by mouth 2 times daily. citicoline 500 mg capsule Take 500 mg by mouth 1 (one) time each day. DIETARY SUPPLEMENT ORAL 1 tablet 1 (one) time each day. lamoTRIgine (LaMICtal XR) 200 mg tablet extended release 24hr 24 hr tablet Take 1 tablet (200 mg total) by mouth 1 (one) time each day. latanoprost (XALATAN) 0.005 % ophthalmic solution Administer 1 drop into both eyes at bedtime. LORazepam (Ativan) 0.5 mg tablet Take 1 tablet (0.5 mg total) by mouth every 6 (six) hours if needed for anxiety. losartan (Cozaar) 100 mg tablet Take 1 tablet (100 mg total) by mouth 1 (one) time each day. 90 each 3 magnesium oxide (MAG-OX) 400 mg magnesium tablet Take 1 tablet (400 mg total) by mouth 2 (two) times a day. Take 1 Tablet by mouth daily for 360 days. metoprolol tartrate (LOPRESSOR) 100 mg tablet Take 1 tablet (100 mg total) by mouth 2 (two) times aday. 180 tablet 1 mirtazapine (REMERON BEHZAD-TAB) 15 mg disintegrating tablet Take 1 Tablet by mouth at bedtime. multivitamin (Multiple Vitamins) tablet 1 tablet 1 (one) time each day. Take by mouth. NIFEdipine CC (ADALAT CC) 60 mg 24 hr tablet Take 1 Tablet by mouth daily. omeprazole (PriLOSEC) [address] capsule Take 1 Capsule by mouth daily. terazosin (HYTRIN) 2 mg capsule Take 1 Capsule by mouth 2 times daily. traZODone (DESYREL) 50 mg tablet Take 1 tablet (50 mg total) by mouth at bedtime. vitamin B complex (B COMPLEX ORAL) 1 tablet 1 (one) time each day. Take by mouth. PAST MEDICAL HISTORY: Patient Active Problem List Diagnosis Date Noted Date Diagnosed A-fib ([facility] V24, [facility] V28) 03/17/2024 Atrial flutter ([facility] [place] [facility] V24, [facility] [place] V28) 03/17/2024 COPD (chronic obstructive pulmonary disease) ([facility] [place] V24, [facility] V28) 03/17/2024 HLD (hyperlipidemia) 03/17/2024 HTN (hypertension) 03/17/2024 SOB (shortness of breath) 03/17/2024 TIA (transient ischemic attack) 03/17/2024 Resolved Problems No resolved problems to display. ALLERGIES: No Known Allergies FAMILY HISTORY: No family history on file. SOCIAL HISTORY: Social History Tobacco Use Smoking status: Former Types: Cigarettes Smokeless tobacco: Never Substance Use Topics Alcohol use: Not Currently REVIEW OF SYSTEMS: ROS otherwise negative PHYSICAL EXAM: Vitals: 11/09/24 1529 BP: 118/68 BP Location: Left arm Patient Position: Sitting BP Cuff Size: Large adult Pulse: 58 SpO2: 95% Weight: 108 kg (238 lb 14.4 oz) Height: 1.93 m (76 ) APPEARANCE: Alert and in no acute distress, well-developed, well-nourished. Tall. EYES: PERRL, conjunctiva and sclera normal EARS: [...] turgor normal. No rashes or lesions. EKG: BRAZER ASSEMBLER TESTING: Labs to be performed November 23 prior to December 01 procedure ASSESSMENT/PLAN: Assessment & Plan Typical atrial flutter (CMS/HCC V24, CMS/HCC V28) Patient has had highly symptomatic typical atrial flutter requiring cardioversion. He has preservedleft ventricular function and no evidence of significant valvular disease. He is scheduled for an ablation procedure for his atrial flutter to be performed at [facility] on December 01, 2024. All questions have been answered. Orders: ECG 12 lead Other emphysema (CMS/HCC V24, CMS/HCC V28) Longstanding and stable COPD without recent exacerbation. TIA (transient ischemic attack) Resolved without recurrence. Patient is maintained on Eliquis in the setting of atrial flutter and prior DVT. Orders: ECG 12 lead Pure hypercholesterolemia Will continue lipid-lowering therapy. Defer follow-up to the primary care team. Orders: ECG 12 lead Primary hypertension Excellent control on his present medical regimen. No changes are recommended at this time. Orders: ECG 12 lead The [facility] team will continue to co-manage this patient following the plan of care as established by my initial visit and as per AHA guidelines for ongoing management and surveillance of 1. Typical atrial flutter (CMS/HCC V24, CMS/HCC V28) 2. Other emphysema (CMS/HCC V24, CMS/HCC V28) 3. TIA (transient ischemic attack) 4. Pure hypercholesterolemia 5. Primary hypertension This will include medication titration, initiation of appropriate medications and further titration, and diagnostic studies to manage this disease process. documented in this encounter Plan of Treatment Upcoming Encounters Date Type Department Care Team (Latest Contact Info) Description 12/01/2024 9:00 AM EDT Hospital Encounter [facility] [address] [place] [address] Ana Mark MD [address] [address] Typical atrial flutter (CMS/HCC V24, CMS/HCC V28) 12/01/2024 9:00 AM EDT - 12/01/2024 11:00 AM EDT [facility] [address] [place] [phone] Ana Mark MD [address] [place], [place] [id number] Ablation atrial flutter [72019 (CPT??)] 12/26/2024 1:40 PM EDT Office Visit [facility] Cardiology [facility] [address] [place] [phone] Sujata Bynum NP [address] [place] [phone] 06/06/2025 1:40 PM EST Office Visit [facility] Card[facility] [address] [place] [address] [address] Garber NP [address] [place] [address] [address] [place], [place] [phone] documented as of this encounter Procedures Procedure Name Priority Date/Time Associated Diagnosis Comments ECG 12-LEAD Routine 11/09/2024 3:44 PM EDT Typical atrial flutter (CMS/HCC V24, CMS/HCC V28) TIA (transient ischemic attack) Pure hypercholesterolemia Primary hypertension documented in this encounter Results * ECG 12 lead (11/09/2024 3:44 PM EDT) Ventricular Rate ECG 58 BPM GEMUSE Atrial Rate 58 BPM GEMUSE P-R Interval 194 ms GEMUSE QRS Duration 88 ms GEMUSE Q-T Interval 430 ms GEMUSE QTc 422 ms GEMUSE P Wave [place] 115 degrees GEMUSE R [place] 48 degrees GEMUSE T [place] 59 degrees GEMUSE ECG Interpretation Sinus bradycardia Otherwise normal ECG When compared with ECG of 26-OCT-2024 13:40, No significant change was found Confirmed by ANA KIMBLE ([id number]) on 11/09/2024 4:41:59 PM GEMUSE 11/09/2024 3:44 PM EDT 11/09/2024 4:41 PM EDT us Ana Kimble MD ECG ORDERABLES Final Result GEMUSE documented in this encounter Visit Diagnoses Diagnosis Atrial flutter (CMS/HCC V24, CMS/HCC V28)- Primary Atrial flutter Typical atrial flutter (CMS/HCC V24, CMS/HCC V28) Typical atrial flutter (CMS/HCC V24, CMS/HCC V28)- Primary Other emphysema (CMS/HCC V24, CMS/HCC V28) Other emphysema TIA (transient ischemic attack) Unspecified transient cerebral ischemia Pure hypercholesterolemia Primary hypertension Unspecified essential hypertension Typical atrial flutter (CMS/HCC V24, CMS/HCC V28) documented in this encounter Care Teams Assistant Grocery Relationship Specialty Start Date End Date Philippe He MD [address] PCP - General Internal Medicine 05/18/24 documented as of this encounter
--- OUTSIDE RECORDS SUMMARY | 2024-11-14 16:56 | XMS_ITS ---
Author Name [facility] Organization Unknown History of Medication Use Medication Directions Dispensed Refills Start Date End Date Stat us Eliquis 5 MG tablet 10/10/2024 a ctive metoPROLOL TARTRATE (LOPRESSOR) 100 MG tablet Take 1 tablet by mouth 2 times a day. 09/20/2024 active mirtazapine (REMERON) 30 MG tablet TAKE 1/2 TABLET BY MOUTH DAILY AT BEDTIME 09/01/2024 active losartan (COZAAR) 100 MG tablet Take 100 mg by mouth daily. 08/22/2024 active atorvastatin (LIPITOR) 10 MG tablet Take 1 tablet by mouth daily. active buPROPion (WELLBUTRIN SR) 200 MG 12 hr tablet Take 200 mg by mouth. active Citicoline 500 MG Cap Take 500 mg by mouth daily. active lamoTRIgine ER 200 MG Tablet SR 24 hr Take 200 mg by mouth. active latanoprost (XALATAN) 0.005 % ophthalmic solution 1 drop. active LORazepam (ATIVAN) 0.5 MG tablet Take 0.5 mg by mouth 4 times daily (every 6 hours) as needed. active OMEprazole (PriLOSEC) 40 MG capsule Take 1 capsule by mouth daily. active terazosin (HYTRIN) 2 MG capsule Take 1 capsule by mouth 2 times a day. active traZODone (DESYREL) 50 MG tablet Take 50 mg by mouth. active Encounters Encounter Type Encounter Reason Primary Diagnosis Location Date Ambulatory [facility] 11/08/2024 Ambulatory [facility] 10/25/2024 Ambulatory [facility] 10/16/2024 Ambulatory Hearing Loss Hearing Loss [facility] 10/16/2024 Care Team Organization Name Specialty Phone Email Start Date End Da te [facility] Philippe He Primary Care 10/24/2024 [facility] Philippe He Primary Care 10/16/2024 [facility] 09/25/2024
--- OUTSIDE RECORDS SUMMARY | 2024-11-14 16:56 | XMS_ITS | Continuity of Care Document ---
Author Organization [facility] [address] [place] [address] Phone [phone] Social History Type Date Description Comments Sex Unknown Medical Devices Description No Information Available Encounters Description No Information Available Assessments Description No Information Available Plan of Treatment No Information Available Functional Status Description No Information Available Mental Status Description No Information Available Referrals Description No Information Available
--- OUTSIDE RECORDS SUMMARY | 2024-11-14 16:56 | XMS_ITS | Clinical Summary ---
Author Organization 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 Active multivitamin (Multiple Vitamins) tablet 1 tablet 1 (one) time each day. Take by mouth. Active terazosin (HYTRIN) 2 mg capsule Take 1 Capsule by mouth 2 times daily. Active vitamin B complex (B COMPLEX ORAL) 1 tablet 1 (one) time each day. Take by mouth. Active DIETARY SUPPLEMENT ORAL 1 tablet 1 (one) time each day. Active NIFEdipine CC (ADALAT CC) 60 mg [...] mouth 1 (one) time each day. Active losartan (Cozaar) 100 mg tabletIndications: Primary hypertension Take 1 tablet (100 mg total) by mouth 1 (one) time each day. 90 each 3 5 026 Active metoprolol tartrate (LOPRESSOR) 100 mg tabletIndications: Essential (primary) hypertension,Atypi evan atrial flutter (CMS/HCC V24, CMS/HCC V28) Take 1 tablet (100 mg total) by mouth 2 (two) times a day. 180 tablet 1 5 Active traZODone (DESYREL) 50 mg tablet Take 1 tablet (50 mg total) by mouth at bedtime. Active latanoprost (XALATAN) 0.005 % ophthalmic solution Administer 1 drop into both eyes at bedtime. Active LORazepam (Ativan) 0.5 mg tablet Take 1 tablet (0.5 mg total) by mouth every 6 (six) hours if needed for anxiety. Active citicoline 500 mg capsule Take 500 mg by mouth 1 (one) time each day. Active Active Problems Problem Noted Date Diagnosed Date A-fib (CMS/HCC V24, CMS/HCC V28) 03/17/2024 Assessment & Plan (10/03/2024 5:16 PM EDT): Orders: ECG 12 lead Cardioversion external; Future Assessment & Plan (08/22/2024 3:47 PM EST): Atrial flutter (CMS/HCC V24, CMS/HCC V28) 2023 Assessment & Plan (11/09/2024 5:11 PM EDT): Patient has had highly symptomatic typical atrial flutter requiring cardioversion. He has preserved left ventricular function and no evidence of significant valvular disease. He is scheduled for an ablation procedure for his atrial flutter to be performed at [facility] on December 01, 2024. All questions have been answered. Orders: ECG 12 lead Assessment & Plan (10/26/2024 2:11 PM EDT): This 74-year-old gentleman has recurrent symptomatic atrial flutter. I had a discussion with him regarding the pros and cons of an ablation versus pharmacologic management. He remains pretty active and is concerned about the resting bradycardia being off of the large dose of metoprolol which she requires for rate control. I went over the 98% success rate with a flutter ablation along with a 1% risk of complications. He wants to proceed with the ablation. I will cut the metoprolol in half after the procedure. 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 His blood pressure appears to be under reasonably good control on his current medicines we will continue those medicines and healthy low-sodium diet. He appears euvolemic on exam and I do not see any signs of active HFpEF despite his LVH. Assessment & Plan (10/03/2024 5:16 PM EDT): The patient has a history of atrial fibrillation as well as a history of atrial flutter. He was successfully cardioverted from atrial flutter a couple of months ago. He did well until about 5 days ago when he developed recurrent palpitations associated with breathlessness and an increase in his measured heart rate. He has had evidence of new atrial flutter which is fairly symptomatic. He does not have evidence of active coronary insufficiency or congestive heart failure. His blood pressure has been fairly labile. At this time I feel that we should make arrangements for urgent outpatient electrical cardioversion. I do not feel that CARLOZ is necessary since the patient has been completely adherent to his regimen of twice daily Eliquis for at least a couple of months. I will try to make arrangements for cardioversion either later this week or early next week. In the long-term I feel that the patient would be a suitable candidate for flutter for both atrial fibrillation and atrial flutter. I will make arrangements for Dr. Dior to see the patient in consultation. Orders: Cardioversion external; Future COPD (chronic obstructive pu lmonary disease) ([facility] V24, [facility] V28) 03/17/2024 Assessment & Plan (11/09/2024 5:11 PM EDT): Longstanding and stable COPD without recent exacerbation. Assessment & Plan (08/22/2024 3:47 PM EST): HLD (hyperlipidemia) 03/17/2024 Assessment & Plan (11/09/2024 5:11 PM EDT): Will continue lipid-lowering therapy. Defer follow-up to the primary care team. Orders: ECG 12 lead Assessment & Plan (08/22/2024 3:47 PM EST): HTN (hypertension) 03/17/2024 Assessment & Plan (11/09/2024 5:11 PM EDT): Excellent control on his present medical regimen. No changes are recommended at this time. Orders: ECG 12 lead Assessment & Plan (10/26/2024 2:12 PM EDT): Hypertension appears well-controlled on current medications and diet. Continue low-sodium diet and regular activity as well as avoidance of heavy alcohol or caffeine. Assessment & Plan (08/22/2024 3:47 PM EST): [...] (transient ischemic attack) 03/17/2024 Assessment & Plan (11/09/2024 5:11 PM EDT): Resolved without recurrence. Patient is maintained on Eliquis in the setting of atrial flutter and prior DVT. Orders: ECG 12 lead Assessment & Plan (08/22/2024 3:47 PM EST): Encounters Date Type Department Care Team Description 11/09/2024 3:30 PM EDT Office Visit [facility] Cardiology [facility] [address] [facility] [address] [place] [address] Ana Kimble MD Typical atrial flutter (CMS/HCC V24, CMS/HCC V28) (Primary Dx); Other emphysema (CMS/HCC V24, CMS/HCC V28); TIA (transient ischemic attack); Pure hypercholesterolemia; Primary hypertension 11/01/2024 Telephone [facility] [address] [place] [phone] Ana Mark MD Procedure (Aflutter Ablation 5.9.25) 10/26/2024 1:30 PM EDT Consult [facility] [address] [place] [phone] Ana Mark MD Atrial fibrillation, unspecified type (CMS/HCC V24, CMS/HCC V28) (Primary Dx); Typical atrial flutter (CMS/HCC V24, CMS/HCC V28); Primary hypertension 10/06/2024 2:55 PM EDT Anesthesia Event [facility] [place] [phone] Richard García MD 10/06/2024 12:43 PM EDT - 10/06/2024 11:59 PM EDT Hospital Encounter [facility] [place] [phone] Sergey Stoner MD Atrial fibrillation, unspecified type (CMS/HCC V24, CMS/HCC V28); Typical atrial flutter (CMS/HCC V24, CMS/HCC V28) Discharge Disposition: Home or Self Care 10/05/2024 Telephone [facility] [address] [place] [address] Ana Kimble MD Procedure (Cardioversion 3.14.25) 10/03/2024 2:30 PM EDT Office Visit [facility] [address] [place] [phone] Ana Kimble MD Atrial fibrillation, unspecified type (CMS/HCC V24, CMS/HCC V28) (Primary Dx); Typical atrial flutter (CMS/HCC V24, CMS/HCC V28) 10/02/2024 Telephone [facility] [address] [place] [phone] Ana Kimble MD fluctuatig heart rate (Heart rate ) 09/30/2024 11:58 PM EST - 10/01/2024 5:06 AM EDT Emergency [facility] Emergency [address] [place] [phone] Jessica Santiago MD Palpitations (Primary Dx); Paroxysmal atrial fibrillation (CMS/HCC V24, CMS/HCC V28); Hypomagnesemia Discharge Disposition: Home or Self Care 08/22/2024 2:30 PM EST Office Visit [facility] [address] [place] [phone] Ana Kimble MD Other emphysema (CMS/HCC V24, CMS/HCC V28) (Primary Dx); Primary hypertension; Persistent atrial fibrillation (CMS/HCC V24, CMS/HCC V28); TIA (transient ischemic attack); Pure hypercholesterolemia from Last 3 Months Surgical History Surgery Date Site/Laterality Comments CARDIOVERSION DONE ON 10/06/2024 AT [facility] Medical History Medical History Date Comments HTN (hypertension) Atrial fib/flutter, transient (CMS/HCC V24, CMS/ HCC V28) GERD (gastroesophageal reflux disease) COPD (chronic obstructive pulmonary disease) (CM S/HCC V24, CMS/HCC V28) Social History Tobacco Use Types Packs/Day Years [...] Pulse 58 11/09/2024 3:29 PM EDT Temperature 36.7 ??C (98.1 ??F) 10/06/2024 2:34 PM ED T Respiratory Rate 22 10/06/2024 4:00 PM EDT Oxygen Saturation 95% 11/09/2024 3:29 PM EDT Inhaled Oxygen Concentration - - Weight 108 kg (238 lb 14.4 oz) 11/09/2024 3:29 P M EDT Height 193 cm (6' 4 ) 11/09/2024 3:29 PM EDT Body Mass Index 29.08 11/09/2024 3:29 PM EDT Plan of Treatment Upcoming Encounters Date Type Department Care Team (Latest Contact Info) Description 12/01/2024 9:00 AM EDT Hospital Encounter [facility] [place] [phone] Ana Mark MD [address] [address] Typical atrial flutter (CMS/HCC V24, CMS/HCC V28) 12/01/2024 9:00 AM EDT - 12/01/2024 11:00 AM EDT Surgery [facility] [place] [phone] Ana Mark MD [address] [address] Ablation atrial flutter [[address] (CPT??)] 12/26/2024 1:40 PM EDT Office Visit [facility] [address] [phone] Sujata Bynum NP [address] [facility] [address] [place] [address] 06/06/2025 1:40 PM EST Office Visit [facility] Cardiology [facility] [address] [place] [phone] [address] Garber NP [address] [place] [address] [address] [place] [address] Health Maintenance Due Date Last Done Comments [...] 10/06/2020, 09/13/2020 Hypertension/CHF/CAD Annual BMP Blood Test 09/30/2025 09/30/2024 Zoster Vaccines Completed 04/08/2020, 07/2018, 05/12/2013 Influenza Vaccine Completed 04/24/2024, , 06/08/2022, Additional history exists RSV Immunization Adult Patients Completed 04/24/2024 HIB Vaccines Aged Out No [...] age to complete this topic Meningococcal B Vaccine Aged Out No l onger eligible based on patient's age to complete this topic RSV Immunization Patients Under 20 months Aged Out No longer eligible based on patient's age to complete this topic Varicella Vaccines Aged Out No longer eligible based on patient's age to complete this topic Procedures Procedure Name Priority Date/Time Associated Diagnosis Comments ECG 12-LEAD Routine 11/09/2024 3:44 PM EDT Typical atrial flutter (CMS/HCC V24, CMS/HCC V28) TIA (transient ischemic attack) Pure hypercholesterolemia Primary hypertension ECG 12-LEAD Routine 10/26/2024 2:12 PM EDT Atrial fibrillation, unspecified type (CMS/HCC V24, CMS/HCC V28) CARDIOVERSION EXTERNAL Routine 10/06/2024 8:31 PM EDT Atrial fibrillation, unspecified type (CMS/HCC V24, CMS/HCC V28) Typical atrial flutter (CMS/HCC V24, CMS/HCC V28) PROCEDURAL ECG Routine 10/06/2024 3:18 PM EDT PROCEDURAL ECG Routine 10/06/2024 3:07 PM EDT ECG 12-LEAD Routine 10/03/2024 3:00 PM EDT Atrial fibrillation, unspecified type (CMS/HCC V24, CMS/HCC V28) ECG ANNOTATED 10/02/2024 ECG 12-LEAD STAT 10/01/2024 12:25 AM EST TROPONIN I HIGH SENSITIVITY STAT 10/01/2024 12:16 AM EST XR CHEST 2 VIEWS STAT 09/30/2024 11:3 7 PM EST CBC WITH AUTO DIFFERENTIAL STAT 09/30/2024 11:05 PM EST B-TYPE NATRIURETIC PEPTIDE STAT 09/30/2024 11:05 PM EST MAGNESIUM STAT 09/30/2024 11:05 PM EST LIPASE STAT 09/30/2024 11:05 PM EST COMPREHENSIVE METABOLIC PANEL STAT 09/30/2024 11:05 PM EST CBC AND DIFFERENTIAL STAT 09/30/2024 11:05 PM EST TROPONIN I HIGH SENSITIVITY STAT 09/30/2024 11:05 PM EST ECG 12-LEAD STAT 09/30/2024 10:57 PM EST from Last 3 Months Results * ECG 12 lead (11/09/2024 3:44 PM EDT) Only the most recent of5 resultswithin the time period is included. Ventricular Rate ECG 58 BPM GEMUSE Atrial Rate 58 BPM GEMUSE P-R Interval 194 ms GEMUSE QRS Duration 88 ms GEMUSE Q-T Interval 430 ms GEMUSE QTc 422 ms GEMUSE P Wave [place] 115 degrees GEMUSE R [place] 48 degrees GEMUSE T [place] 59 degrees GEMUSE ECG Interpretation Sinus bradycardia Otherwise normal ECG When compared with ECG of 26-OCT-2024 13:40, No significant change was found Confirmed by ANA KIMBLE ([id number]) on 11/09/2024 4:41:59 PM GEMUSE 11/09/2024 3:44 PM EDT 11/09/2024 4:41 PM EDT us Ana Kimble MD ECG ORDERABLES Final Result GEMUSE * Cardioversion external (10/06/2024 8:31 PM EDT) Anatomical Region Laterality Modality X-Ray Angiograph y Narrative 10/06/2024 8:31 PM EDT ?See separate note for cardioversion. us Ana Kimble MD CV CARDI[facility] SERVICES PROCEDURES Final Result * ECG 12 lead - Procedural (No Charge) (10/06/2024 3:18 PM EDT) Only the most recent of2 resultswithin the time period is included. [facility] Ventricular Rate ECG 62 BPM GEMUSE Atrial Rate 62 BPM GEMUSE P-R Interval 212 ms GEMUSE QRS Duration 84 ms GEMUSE Q-T Interval 416 ms GEMUSE QTc 422 ms GEMUSE P Wave [place] 117 degrees GEMUSE R [place] -6 degrees GEMUSE T [place] 33 degrees GEMUSE ECG Interpretation Sinus rhythm with 1st degree A-V block Inferior infarct (cited on or before 06-OCT-2024 ) Abnormal ECG When compared with ECG of 06-OCT-2024 15:07, (unconfirme d) Sinus rhythm has replaced Atrial flutter Confirmed by Lukasz STONER YUFENG ([id number]) on 10/06/2024 8:00:56 PM GEMUSE 10/06/2024 3:18 PM EDT 10/06/2024 8:00 PM EDT Sergey Stoner MD ECG ORDERABLES Final Result GEMUSE * ECG-Annotated (10/02/2024) Provider Onbase ECG ORDERABLES Final Result * Troponin I high sensitivity (10/01/2024 12:16 AM EST) Only the most recent of2 resultswithin the time period is included. [facility] High Sensitivity Troponin I 12 <=79 ng/L LAB CHEMISTRY METHOD 10/01/2024 12:54 AM EST [facility] Blood Venous blood specimen / Unknown Venipuncture / Unknown 10/01/2024 12:16 AM EST 10/01/2024 12:27 AM EST Narrative [facility] - 10/01/2024 12:54 AM EST High levels of biotin in samples may falsely decrease hsTroponin values. ??Use caution when interpreting hsTroponin results in patients taking biotin who exhibit renal impairment (eGFR <60) or in patients taking more than 20 mg/day of biotin. Simeon Mancilla MD LAB BLOOD ORDERABLES Final Resu lt [facility] ([facility]) [facility] [address] [place] [address], * XR Chest 2 Views (09/30/2024 11:37 PM EST) Anatomical Region Laterality Modality Body Radiographic Indu ging 10/01/2024 7:22 AM EDT Impressions 10/01/2024 7:24 AM EDT No focal pneumonia. Large lung volumes. -------- FINAL REPORT -------- Dictated By: Jarrett Coppola Dictated Date: 10/01/2024 07:22 ET Assigned Physician: Jarrett Coppola Reviewed and Electronically Signed By: Jarrett Coppola Signed Date: 10/01/2024 07:24 ET Workstation ID: [id number] Transcribed By: Self Edit Transcribed Date: 10/01/2024 07:22 ET Narrative 10/01/2024 7:24 AM EDT EXAMINATION: CHEST CLINICAL INFORMATION: Chest pain COMPARISON: Frontal view 04/12/2024 TECHNIQUE: 2 views of the chest FINDINGS: There is minimal rotation to the right. There is slight narrowing of the transverse diameter of the trachea unchanged. The cardiac size is within normal limits. There is no mediastinal mass. No definite change in the norman. No alveolar edema. No dense focal pneumonia or major zone of atelectasis. The lung volumes are large. There is no pneumothorax or significant pleural fluid. Slight reversal of expected thoracic kyphosis. Procedure Note Jarrett Coppola MD - 10/01/2024 EXAMINATION: CHEST CLINICAL INFORMATION: Chest pain COMPARISON: Frontal view 04/12/2024 TECHNIQUE: 2 views of the chest FINDINGS: There is minimal rotation to the right. There is slight narrowing of thetransverse diameter of the trachea unchanged. The cardiac size is withinnormal limits. There is no mediastinal mass. No definite change in thehila. No alveolar edema. No dense focal pneumonia or major zone of atelectasis. The lung volumesare large. There is no pneumothorax or significant pleural fluid. Slight reversal of expected thoracic kyphosis. IMPRESSION: No focal pneumonia. Large lung volumes. -------- FINAL REPORT -------- Dictated By: Jarrett Coppola Dictated Date: 10/01/2024 07:22 ET Assigned Physician: Jarrett Coppola Reviewed and Electronically Signed By: Jarrett Coppola Signed Date: 10/01/2024 07:24 ET Workstation ID: [id number] Transcribed By: Self Edit Transcribed Date: 10/01/2024 07:22 ET Simeon Mancilla MD IMG XR PROCEDURES Final Result * (ABNORMAL) CBC auto differential (09/30/2024 11:05 PM EST) WBC 4.2(L) 4.8 - 10.8 K/mcL LAB HEMETOLOGY METHOD 09/30/2024 11:30 PM [facility] RBC 4.90 4.50 - 5.50 M/mcL LAB HEMETOLOGY METHOD 09/30/2024 11:30 PM [facility] Hemoglobin 14.9 13.5 - 17.5 g/dL LAB HEMETOLOGY METHOD 09/30/2024 11:30 PM [facility] Hematocrit 45.9 42.0 - 54.0 % LAB HEMETOLOGY METHOD 09/30/2024 11:30 PM [facility] MCV 94.6 79.0 - 98.0 FL LAB HEMETOLOGY METHOD 09/30/2024 11:30 PM [facility] MCH 30.7 27.0 - 32.0 pcg LAB HEMETOLOGY METHOD 09/30/2024 11:30 PM [facility] MCHC 32.5 32.0 - 37.0 g/dL LAB HEMETOLOGY METHOD 09/30/2024 11:30 PM [facility] RDW 12.7 11.0 - 15.0 % LAB HEMETOLOGY METHOD 09/30/2024 11:30 PM [facility] Platelets 192 130 - 400 K/mcL LAB HEMETOLOGY METHOD 09/30/2024 11:30 PM [facility] MPV 9.6 7.0 - 11.0 FL LAB HEMETOLOGY METHOD 09/30/2024 11:30 PM [facility] NRBC 0.0 <1.0 % LAB HEMETOLOGY METHOD 09/30/2024 11:30 PM [facility] NRBC Absolute 0.00 <0.10 K/mcL LAB HEMETOLOGY METHOD 09/30/2024 11:30 PM [facility] Neutrophils Relative 38.5 % LAB HEMETOLOGY METHOD 09/30/2024 11:30 PM [facility] Lymphocytes Relative 48.7 % LAB HEMETOLOGY METHOD 09/30/2024 11:30 PM [facility] Monocytes Relative 7.4 % LAB HEMETOLOGY METHOD 09/30/2024 11:30 PM [facility] Eosinophils Relative 4.5 % LAB HEMETOLOGY METHOD 09/30/2024 11:30 PM [facility] Basophils Relative 0.7 % LAB HEMETOLOGY METHOD 09/30/2024 11:30 PM [facility] Immature Granulocytes Relative 0.2 % LAB HEMETOLOGY METHOD 09/30/2024 11:30 PM [facility] Neutrophils Absolute 1.62 1.50 - 7.00 K/mcL LAB HEMETOLOGY METHOD 09/30/2024 11:30 PM [facility] Lymphocytes Absolute 2.05 1.00 - 5.00 K/mcL LAB HEMETOLOGY METHOD 09/30/2024 11:30 PM EST [facility] Monocytes Absolute 0.31 0.20 - 1.00 K/mcL LAB HEMETOLOGY METHOD 09/30/2024 11:30 PM EST [facility] Eosinophils Absolute 0.19 0.00 - 0.50 K/mcL LAB HEMETOLOGY METHOD 09/30/2024 11:30 PM EST [facility] Basophils Absolute 0.03 0.00 - 0.20 K/mcL LAB HEMETOLOGY METHOD 09/30/2024 11:30 PM EST [facility] Immature Granulocytes Absolute 0.01 0.00 - 0.03 K/mcL LAB HEMETOLOGY METHOD 09/30/2024 11:30 PM EST [facility] Blood Venous blood specimen / Unknown Venipuncture / Unknown 09/30/2024 11:05 PM EST 09/30/2024 11:24 PM EST Simeon Mancilla MD LAB BLOOD ORDERABLES Final Resu lt [facility] [address] [place] [address], [place] [phone] * B-type natriuretic peptide (09/30/2024 11:05 PM EST) [facility] BNP 79 <=100 pcg/mL LAB CHEMISTRY METHOD 09/30/2024 11:59 PM EST [facility] Blood Venous blood specimen / Unknown Venipuncture / Unknown 09/30/2024 11:05 PM EST 09/30/2024 11:24 PM EST us Simeon Mancilla MD LAB BLOOD ORDERABLES Final Resu lt [facility] [address] [place] [address], [place] [phone] * (ABNORMAL) Magnesium (09/30/2024 11:05 PM EST) Magnesium 1.5(L) 1.9 - 2.6 mg/dL LAB CHEMISTRY METHOD 09/30/2024 11:47 PM EST [facility] Blood Venous blood specimen / Unknown Venipuncture / Unknown 09/30/2024 11:05 PM EST 09/30/2024 11:24 PM EST us Simeon Mancilla MD LAB BLOOD ORDERABLES Final Resu lt Performing Organization Address City/[facility]/ZIP Co de Phone Number [facility] [address] [place] [address], [place] [phone] * Lipase (09/30/2024 11:05 PM EST) [facility] Lipase 54 13 - 75 unit/L LAB CHEMISTRY METHOD 09/30/2024 11:47 PM EST [facility] Blood Venous blood specimen / Unknown Venipuncture / Unknown 09/30/2024 11:05 PM EST 09/30/2024 11:24 PM EST us Simeon Mancilla MD LAB BLOOD ORDERABLES Final Resu lt Performing Organization Address City/[facility]/ZIP Co de Phone Number [facility] [address] [place] [address], [place] [phone] * (ABNORMAL) Comprehensive metabolic panel (09/30/2024 11:05 PM EST) [facility] Sodium 137 133 - 145 mmol/L LAB CHEMISTRY METHOD 09/30/2024 11:47 PM EST [facility] Potassium 3.7 3.5 - 5.5 mmol/L LAB CHEMISTRY METHOD 09/30/2024 11:47 PM EST [facility] Chloride 106 96 - 110 mmol/L LAB CHEMISTRY METHOD 09/30/2024 11:47 PM EST [facility] CO2 26 21 - 32 mmol/L LAB CHEMISTRY METHOD 09/30/2024 11:47 PM [facility] Anion Gap 5 3 - 11 LAB CHEMISTRY METHOD 09/30/2024 11:47 PM [facility] Glucose 199(H) 70 - 100 mg/dL LAB CHEMISTRY METHOD 09/30/2024 11:47 PM [facility] BUN 14 5 - 25 mg/dL LAB CHEMISTRY METHOD 09/30/2024 11:47 PM [facility] Creatinine 1.37(H) 0.70 - 1.30 mg/dL LAB CHEMISTRY METHOD 09/30/2024 11:47 PM [facility] eGFR 54(L) >=60 mL/min/1. 73m2 LAB CHEMISTRY METHOD 09/30/2024 11:47 PM [facility] Comment:Calculation based on the??Chronic Kidney Disease Epidemiology Collaboration (CKD-EPI) equation refit??without adjustment for race. BUN/Creatinine Ratio 10.2 LAB CHEMISTRY METHOD 09/30/2024 11:47 PM [facility] Calcium 8.9 8.5 - 10.5 mg/dL LAB CHEMISTRY METHOD 09/30/2024 11:47 PM [facility] AST (SGOT) 34 10 - 42 unit/L LAB CHEMISTRY METHOD 09/30/2024 11:47 PM [facility] ALT (SGPT) 53 10 - 60 unit/L LAB CHEMISTRY METHOD 09/30/2024 11:47 PM [facility] Alkaline Phosphatase 135(H) 42 - 121 unit/L LAB CHEMISTRY METHOD 09/30/2024 11:47 PM [facility] Total Protein 7.5 6.0 - 8.0 g/dL LAB CHEMISTRY METHOD 09/30/2024 11:47 PM [facility] Albumin 3.6 3.2 - 5.0 g/dL LAB CHEMISTRY METHOD 09/30/2024 11:47 PM [facility] Total Bilirubin 0.4 0.0 - 1.4 mg/dL LAB CHEMISTRY METHOD 09/30/2024 11:47 PM EST [facility] Blood Venous blood specimen / Unknown Venipuncture / Unknown 09/30/2024 11:05 PM EST 09/30/2024 11:24 PM EST us Simeon B Laurent HUERTA LAB BLOOD ORDERABLES Final Resu lt [facility] [address] [place] [address], from Last 3 Months Insurance MEDICARE [facility] Care Teams Host/Hostess Restaurant Relationship Specialty Start Date End Date Philippe He MD Daphnie Gunderson [address] PCP - General Internal Medicine 05/18/24
== END 2024-11-14 14:23 | disposition home or self-care (01) ==
LOC: HO.HOP 14:05
PROVIDERS: PCP Internal Medicine; Visit Provider Clinical Nurse Specialist Psychiatric/Mental Health
DX: F33.1 Major depressive disorder, recurrent, moderate (principal); F41.0 Panic disorder [episodic paroxysmal anxiety]
CPT/HCPCS: 99214

== ENCOUNTER → 2024-11-14 14:05 | Outpatient (BNVA) | payer MEDICARE, OTHER, SELFPAY | PROVIDERS: PCP Internal Medicine; Visit Provider Clinical Nurse Specialist Psychiatric/Mental Health | DX: F41.9 Anxiety disorder, unspecified (principal); F33.1 Major depressive disorder, recurrent, moderate; F41.0 Panic disorder [episodic paroxysmal anxiety]; Z71.89 Other specified counseling | CPT/HCPCS: 99212 ==

== ENCOUNTER 2025-02-12 13:05 | Outpatient (AMB) | payer MEDICARE, OTHER, SELFPAY ==
--- NOTE | 2025-02-12 13:07 | MHC.OFFVISPS ---
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 Required: No Medication List - Last Reconciled 02/12/25 by Puja Conley, CYNTHIA apixaban (Eliquis) 5 mg PO BID atorvastatin 10 mg PO DAILY buspirone 20 mg (2 x 10 mg) PO BID cholecalciferol (vitamin D3) (Vitamin D3) 25 mcg PO DAILY folic acid 0.4 mg PO DAILY lamotrigine ER (Lamictal XR) 200 mg PO DAILY latanoprost 0.005% drps ophthalmic (eye) lorazepam 0.5 mg PO DAILY PRN magnesium oxide 400 mg PO DAILY metoprolol tartrate 25 mg PO BID mirtazapine 15 mg (1/2 x 30 mg) PO BEDTIME nifedipine ER 60 mg PO DAILY omeprazole 40 mg PO DAILY trazodone 50 - 100 mg (1 - 2 x 50 mg) PO BEDTIME HPI- Psychiatric Chief Complaint: depression HPI Narrative: pt here for follow up re: depression and anxiety. mood good; anxiety stable PHQ9=4 and GAD7=3 Pt reports no side effects from medication Pt reports his BP and cardiac ablation went well. No other medical issues Pt denies SI and HI Past Psychiatric History: inpatient [place] [facility] 2018; [facility] PHP[facility]OP [facility] fall and 2020 (May) outpatient [facility] outpatient, Dr. 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 Subjective Subjective Subjective Medication Compliance: Yes Side effects from medications: No Review of Systems Medical Review of Systems: unchanged Mental Status Exam Mental Status Exam Patient Appearance: Well Grooomed Patient Orientation: Person, Place, Time and Situation Level of Consciousness: Awake and Appropriate Patient Behavior: Appropriate and Cooperative Mood Description: Cheerful Affect Description: Cheerful Patient Cognition Impaired: No Ability to Follow Directions: Good Speech Pattern: Clear and Appropriate Memory Description: Intact Hallucinations: None Delusions: Not Present Thought Process: Intact and Goal Oriented Thought Content: positive for Intact and positive for Goal Oriented Judgement: Fair Assessment and Plan Assessment & Plan (1) Major depressive disorder, recurrent, moderate: Status: Acute Code(s): F33.1 - Major depressive disorder, recurrent, moderate (2) Panic attacks: Status: Acute Code(s): F41.0 - Panic disorder [episodic paroxysmal anxiety] Plan continue current meds return in 3 months Medications: Refilled folic acid 0.4 mg PO DAILY 30 tabs 2RF lamotrigine ER (Lamictal XR) 200 mg PO DAILY 90 tabs 1RF lorazepam 0.5 mg PO DAILY PRN 30 tabs 2RF severe anxiety mirtazapine 15 mg (1/2 x 30 mg) PO BEDTIME 15 tabs 2RF buspirone 20 mg (2 x 10 mg) PO BID 180 tabs 1RF cholecalciferol (vitamin D3) (Vitamin D3) 25 mcg PO DAILY 90 tabs 0RF trazodone 50 - 100 mg (1 - 2 x 50 mg) PO BEDTIME 180 tabs 1RF for insomnia Counseling and coordination of Care Pt. Self Management counseling: Maintenance-social rhythm, Mod caffeine/ETOH intake, Nutrition education and improvement, Sleep hygiene and Problem solving Medication management counseling: Effectiveness, Side effects, Dosing range, Duration, Drug interaction and Adherence Diagnosis and Prognosis Counseling: Accuracy of diagnosis, Prognosis over time, Impact of diagnosis on life functions and Adequacy of current interventions Details: I spent 30 minutes reviewing the record, seeing the patient and documenting in the medical record. Counseling provided to the patient/caregiver as outlined below. Addressed patient/caregiver concerns regarding current medication regime including effective adherence. Addressed patient/caregiver concerns regarding diagnosis and prognosis including accuracy of diagnosis, prognosis over time, impact of diagnosis. Addressed patient/caregiver concerns regarding impact of recent stressors. 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
--- OUTSIDE RECORDS SUMMARY | 2025-02-12 13:50 | XMS_ITS | Clinical Summary ---
Author Organization [facility] Address [address] [place] [address] Care Team Providers Care Nursing Student Name Role Phone Philippe He MD Primary Care Provider [phone] Allergies No known active allergies Medications Eliquis 5 MG tablet 10/10/2024 Active atorvastatin (LIPITOR) 10 MG tablet Take 1 tablet by mouth daily. Active buPROPion (WELLBUTRIN SR) 200 MG 12 hr tablet Take 200 mg by mouth. Active Citicoline 500 MG Cap Take 500 mg by mouth daily. Active lamoTRIgine ER 200 MG Tablet SR 24 hr Take 200 mg by mouth. Active latanoprost (XALATAN) 0.005 % ophthalmic solution 1 drop. Active LORazepam (ATIVAN) 0.5 MG tablet Take 0.5 mg by mouth 4 times daily (every 6 hours) as needed. Active losartan (COZAAR) 100 MG tablet Take 100 mg by mouth daily. 08/22/2024 Active metoPROLOL TARTRATE (LOPRESSOR) 100 MG tablet Take 1 tablet by mouth 2 times a day. 09/20/2024 Active mirtazapine (REMERON) 30 MG tablet TAKE 1/2 TABLET BY MOUTH DAILY AT BEDTIME 09/01/2024 Active OMEprazole (PriLOSEC) 40 MG capsule Take 1 capsule by mouth daily. Active terazosin (HYTRIN) 2 MG capsule Take 1 capsule by mouth 2 times a day. Active traZODone (DESYREL) 50 MG tablet Take 50 mg by mouth. Active Social History Tobacco Use Types Packs/Day Years Used Date Smoking Tobacco: Never Assessed Sex and Gender Information Value Date Recorded Sex Assigned at Not on file Legal Sex Male 10:35 AM EDT Gender Identity Not on file Sexual Orientation Not on file Last Filed Vital Signs Vital Sign Reading Time Taken Comments Blood Pressure - - Pulse - - Temperature - - Respiratory Rate - - Oxygen Saturation - - Inhaled Oxygen Concentration - - Weight 107 kg (235 lb) 10/16/2024 8:54 AM EDT Height 193 cm (6' 4 ) 10/16/2024 8:54 AM EDT Body Mass Index 28.61 10/16/2024 8:54 AM EDT Plan of Treatment Upcoming Encounters Date Type Department Care Team (Late st Contact Info) Description 05/10/2025 10:00 AM EDT Office Visit [facility] [place] [address] [facility], [place] [address] Shanti Gibbons Au.D [address] [place] [address] Health Maintenance Due Date Last Done Comments Hepatitis C Virus Screening 1950 DTaP/Tdap/Td Vaccines (1 - Tdap) 1969 Colonoscopy 1995 Pneumococcal Vaccines 50+ (1 of 1 - PCV) 02/05/2000 Zoster (Shingles) Vaccine (1 of 2) 02/05/2000 COVID-19 Vaccine ( - 2023-2 5 season) 2024 RSV Vaccine 60 years and old er and Patients (1 - 1-dose 75+ series) 2025 Influenza Vaccine 02/23/2025 Hepatitis B Vaccines Aged Out No long er eligible based on patient's age to complete this topic Insurance MEDICARE PART A & B [facility] MCR SUPPLEMENT ONLY Care Teams Nursing Student Relationship Specialty Start Date End Date Philippe He MD [address] [place] [address] PCP - General 10/16/24
--- OUTSIDE RECORDS SUMMARY | 2025-02-12 13:51 | XMS_ITS | Continuity of Care Document ---
Author Organization [facility] Address [address] [place] [address] Phone [phone] Social History Type Date Description Comments Sex Male Sex Unknown Medical Devices Description No Information Available Encounters Description No Information Available Assessments Description No Information Available Plan of Treatment No Information Available Functional Status Description No Information Available Mental Status Description No Information Available Referrals Description No Information Available
--- OUTSIDE RECORDS SUMMARY | 2025-02-12 13:51 | XMS_ITS ---
Author Name [facility] Organization Unknown History of Medication Use [...] Encounter Reason Primary Diagnosis Location Date Ambulatory [facility] 11/08/2024 Ambulatory [facility] 10/25/2024 Ambulatory [facility] 10/16/2024 Ambulatory Hearing Loss Hearing Loss [facility] 10/16/2024 Care Team Organization Name Specialty Phone Email Start Date End Da te [facility] [employer] Philippe He Primary Care 10/24/2024 12/10/[address] [facility] Philippe He Primary Care 10/16/[address] [facility] 09/25/2024
== END 2025-02-12 13:24 | disposition home or self-care (01) ==
LOC: HO.HOP 13:05
PROVIDERS: PCP Internal Medicine; Visit Provider Clinical Nurse Specialist Psychiatric/Mental Health
DX: F33.1 Major depressive disorder, recurrent, moderate (principal); F41.0 Panic disorder [episodic paroxysmal anxiety]
CPT/HCPCS: 99214

== ENCOUNTER → 2025-02-12 13:05 | Outpatient (BNVA) | payer MEDICARE, OTHER, SELFPAY | PROVIDERS: PCP Internal Medicine; Visit Provider Clinical Nurse Specialist Psychiatric/Mental Health | DX: F33.1 Major depressive disorder, recurrent, moderate (principal); F41.0 Panic disorder [episodic paroxysmal anxiety] | CPT/HCPCS: 99212 ==

== ENCOUNTER 2025-03-06 13:08 | Outpatient (AMB) | payer MEDICARE, OTHER, SELFPAY ==
--- NOTE | 2025-03-06 13:10 | A.OFFVIS_ITS ---
Vital Signs 03/06/25 13:13 Height 6 ft 4 in Weight 237 lb 4 oz BMI 28.9 BP 104/68 Blood Pressure Location Rt brachial Position Sitting Pulse 56 Pulse Source Pulse Oximeter Pulse Oximetry (%) 96 Oxygen Delivery Method Room Air Intake Visit Reasons: Emphysema, COPD Allergies No Known Allergies Allergy (Verified 03/06/25 13:16) HPI HPI Emphysema, COPD: Details: Hosea is a pleasant 75-year-old male, current 75+ pack year smoker, with underlying COPD, JADIEL on CPAP, Atrial fibrillation, h/o DVT on Eliquis, h/o prostate cancer s/p prostatectomy and HTN. He was referred by PCP for further management of COPD and JADIEL. He was previously under the care of [facility] but lost to follow up. He has been undergoing annual lung screenings since 2019, which have shown stable pulmonary nodules measuring up to 4 mm through [facility]. He has upcoming CT to be scheduled in March. The patient reports occasional dyspnea, particularly with exertion such as climbing stairs or walking uphill, but denies any significant progression of symptoms over time. He also reports intermittent mucus production associated with wheezing. He is not currently on daily respiratory medications, however has albuterol but uses infrequently. He denies prior h/o asthma or recurrent URI. He endorses seasonal allergies. 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 He is under the care or [facility] and follows closely with them. He also reports consistent use of CPAP therapy for JADIEL unknown severity however has not had oversight in quite some time and continues with daytime faitgue, [facility] Medical History (Updated 03/06/25 @ 20:17 by Karly Aaron NP) Prostate cancer Hearing loss DVT (deep venous thrombosis) COPD (chronic obstructive pulmonary disease) Diabetes 1.5, managed as type 2 HTN (hypertension) Surgical History (Updated 06/06/24 @ 15:41 by Puja Conley APRN) H/O prostatectomy Social History (Updated 03/06/25 @ 13:16 by Elyse Aburto CMA) Patient Tobacco Use Status: Current everyday Tobacco user Tobacco use type: Cigarette Cigarette Packs Per Day: 0.5 Cigarettes Per Day: 12 Review of Systems Const Denies chills, Denies excessive sweating, Denies fever(s), Denies headache(s) and Denies night sweats Eyes Denies dry eyes, Denies irritation and Denies itchy eyes ENT Reports Normal hearing present, Denies headache(s), Denies nasal congestion, Denies nasal discharge, Denies post nasal drip and Denies sore throat Card Denies chest pain, Denies chest pain at rest, Denies chest pain with activity, Denies claudication, Denies leg edema, Reports dyspnea on exertion, Denies orthopnea and Denies paroxysmal nocturnal dyspnea Resp Denies chest congestion, Denies cough, Denies excessive phlegm production, Denies pain on inspiration, Denies pain with cough, Reports dyspnea on exertion, Denies stridor and Reports wheezing Musc Denies myalgias Neuro Reports Normal hearing present and Denies headache(s) Endo Denies excessive sweating Carlos/Lymph Denies lymphadenopathy Aller/Immun Denies itchy eyes, Denies seasonal rhinorrhea and Reports wheezing Physical Exam Vital Signs: Last Vital Signs Pulse 56 03/06/25 13:13 BP 104/68 03/06/25 13:13 Pulse Ox 96 03/06/25 13:13 Oxygen Delivery Method Room Air 03/06/25 13:13 BMI result Body Mass Index 28.9 Const General: cooperative, healthy appearing, comfortable, no acute distress, well developed and alert Nutritional Appearance: obese Orientation/consciousness: patient oriented x3 Limitations: no limitations HEENT Head: Yes normal to inspection, Yes normocephalic and Yes atraumatic Ears: hearing grossly normal bilaterally and external ears normal Eyes General: appearance normal, both eyes and all related structures Eyelids: Yes eyelids normal Sclerae: sclerae normal EOM: EOMs intact bilaterally Neck Neck: Yes normal visual inspection and Yes no lymphadenopathy Lymphatic: no lymphadenopathy noted Chest Chest palpation & inspection: normal inspection of the chest Resp Effort & Inspection: normal respiratory effort, able to speak in complete sentences, no audible wheezes, no cough, no stridor, not tachypneic, no tripod positioning and no use of accessory muscles Auscultation: diminished lung sounds Cardio Jugular venous distension: no JVD Rate: regular rate Rhythm: regular rhythm Skin Other: warm, dry General skin exam: no rashes or lesions noted Neuro General: patient oriented x3 Cranial nerves: Yes Normal hearing present Cognition (Neuro): normal cognition Gait exam (Neuro): Normal gait present Extrem General: Yes normal to inspection, Yes capillary refill normal, Yes no clubbing, cyanosis or edema and Yes no pedal edema Psych Appearance: grossly normal and well kempt Speech and movement: Normal speech and movement present and Clear speech present Affect: normal affect Attitude: cooperative Thought process: Normal thought process present Thought content: Normal thought content present Insight: Good insight present (Psych) Judgement: Good judgement present (Psych) Assessment & Plan Assessment & Plan (1) COPD (chronic obstructive pulmonary disease): Code(s): J44.9 - Chronic obstructive pulmonary disease, unspecified Category: Medical (2) Obstructive sleep apnea: Code(s): G47.33 - Obstructive sleep apnea (adult) (pediatric) Category: Medical (3) Daytime somnolence: Code(s): R40.0 - Somnolence Category: Medical (4) Nicotine dependence, cigarettes, uncomplicated: Code(s): F17.210 - Nicotine dependence, cigarettes, uncomplicated Category: Medical Plan The plan includes scheduling a comprehensive pulmonary function test to assess the current status of the patient's COPD and to compare with previous results. Breo will be initiated to manage symptoms and prevent exacerbations, with instructions to use albuterol as needed for acute relief. Discussed importance of good oral hygiene to prevent thrush. An in lab titration sleep study will be arranged to evaluate the effectiveness of the current CPAP settings as he is still symptomatic to determine if adjustments to pressures are necessary. The patient will continue with annual lung screenings to monitor the stability of pulmonary nodules through [facility]. Smoking cessation support will be provided, with a gradual reduction in cigarette consumption recommended. All questions were answered and patient is in agreement of plan. Will follow up in 6-8 weeks or sooner if needed. Orders: Orders RT PSG in-lab sleep titration Today G47.33 - Obstructive sleep apnea (adult) (pediatric), R40.0 - Somnolence PFT pulmonary function test Today J44.9 - Chronic obstructive pulmonary disease, unspecified Medications: New fluticasone furoate-vilanterol 100-25 mcg/dose (Breo Ellipta) 1 inh inhalation DAILY 60 ea 3RF Coding Level of Care Code New Pt Level 4 (76179) Diagnoses COPD (chronic obstructive pulmonary disease) J44.9 Obstructive sleep apnea G47.33 Daytime somnolence R40.0 Nicotine dependence, cigarettes, uncomplicated F17.210
[2025-03-06 13:13] VITALS: BP 104/68; PULSE 56; O2SAT 96; BMI 28.9
--- OUTSIDE RECORDS SUMMARY | 2025-03-06 13:57 | XMS_ITS | Clinical Summary ---
Author Organization [facility] Address [address] [place] [address] Care Team Providers Care Senior Mainframe Developer Name Role Phone Philippe He MD Primary Care Provider [phone] Allergies No known active allergies Medications Eliquis [...] Description 05/10/2025 10:00 AM EDT Office Visit [facility] [place] [address] [facility] [place] [address] Shanti Gibbons Au.D [address] [place] [address] Health Maintenance Due Date Last Done [...] topic Insurance MEDICARE PART A & B [facility] MCR SUPPLEMENT ONLY Care Teams Senior Mainframe Developer Relationship Specialty Start Date End Date Philippe He MD [address] [place] [address] PCP - General 10/16/24
--- OUTSIDE RECORDS SUMMARY | 2025-03-06 13:57 | XMS_ITS | Encounter Summary ---
Author Organization [facility] [place] [address] Care Team Providers Care Clothing Examiner Name Role Phone Philippe He MD Primary Care Provider [phone] Reason for Visit * Reason Onset Date Comments Results 02/28/2025 Encounter Details Date Type Department Care Team (Late st Contact Info) Description 02/28/2025 Telephone Gastroenterology - [address] [place] [id number] Rani Gonzales MA Results Social History Tobacco Use Types Packs/Day Years Used Date Smoking Tobacco: Former Cigarettes Smokeless Tobacco: Never Alcohol Use Standard Drinks/Week Comments Not Currently 0 (1 standard drink = 0.6 oz pur e alcohol) Interpersonal Safety Answer Date Record ed Physical Abuse 02/23/2025 Verbal Abuse 02/23/2025 Sex and Gender Information Value Date Recorded Sex Assigned at Male 03/24/2024 3:00 PM EDT Legal Sex Male 10:59 PM EST Gender Identity Male 03/24/2024 3:00 PM EDT Sexual Orientation Straight 03/24/2024 3: 00 PM EDT documented as of this encounter Progress Notes * Diana Harrison - 03/05/2025 1:16 PM EDT Patient returning call * Rani Gonzales MA - 02/28/2025 10:42 AM EDT Lmom to cb * Rani Gonzales MA - 02/28/2025 10:42 AM EDT ----- Message from Nicholas Leung MD sent at 02/26/2025 2:00 PM EDT ----- Please call patient: polyp(s) HP, repeat colonoscopy in 5 years. TY documented in this encounter Plan of Treatment Upcoming Encounters Date Type Department Care Team (Late st Contact Info) Description 04/25/2025 12:40 PM EDT Office Visit [facility] [address] [facility] [address] [place] [address] Sujata Bynum NP [address] [facility] [address] [place] [address] 06/06/2025 1:40 PM EST Office Visit [facility] [address] [place] [address] [address] [place] [address] Lane Garber NP [address] [place] [address] [address] [facility] [address] [place] [address] documented as of this encounter Visit Diagnoses Not on filedocumented in this encounter Care Teams Clothing Examiner Relationship Specialty Start Date End Date Philippe He MD [address] [place] [address] PCP - General Internal Medicine 05/18/24 documented as of this encounter
--- OUTSIDE RECORDS SUMMARY | 2025-03-06 13:57 | XMS_ITS | Continuity of Care Document ---
Author Organization [facility] Address [address] [place] [address] Phone [phone] Social History Type Date Description Comments Sex Male Sex Unknown Medical Devices Description No Information Available Encounters Description No Information Available Assessments Description No Information Available Plan of Treatment No Information Available Functional Status Description No Information Available Mental Status Description No Information Available Referrals Description No Information Available
== END 2025-03-06 14:04 | disposition home or self-care (01) ==
PROVIDERS: PCP Internal Medicine; Referring Provider Physician Assistant Medical; Visit Provider Nurse Practitioner Family
DX: J44.9 Chronic obstructive pulmonary disease, unspecified (principal); G47.33 Obstructive sleep apnea (adult) (pediatric); R40.0 Somnolence; F17.210 Nicotine dependence, cigarettes, uncomplicated
CPT/HCPCS: 99204

== ENCOUNTER → 2025-03-06 13:08 | Outpatient (BNVA) | payer MEDICARE, OTHER, SELFPAY | PROVIDERS: PCP Internal Medicine; Referring Provider Physician Assistant Medical; Visit Provider Nurse Practitioner Family | DX: G47.33 Obstructive sleep apnea (adult) (pediatric) (principal); J44.9 Chronic obstructive pulmonary disease, unspecified; R40.0 Somnolence; F17.210 Nicotine dependence, cigarettes, uncomplicated | CPT/HCPCS: 99202 ==

== ENCOUNTER → 2025-04-17 21:07 | Outpatient (BNV) | payer MEDICARE, OTHER, SELFPAY | PROVIDERS: PCP Internal Medicine; Visit Provider Internal Medicine | DX: R40.0 Somnolence (principal) | CPT/HCPCS: 95810 ==

== ENCOUNTER → 2025-04-17 21:17 | Outpatient (REF) | payer MEDICARE, OTHER, SELFPAY ==
--- OUTSIDE RECORDS SUMMARY | 2025-04-17 21:30 | XMS_ITS | Continuity of Care Document ---
Author Organization [facility] Address [address] [place] [address] Phone [phone] Social History Type Date Description Comments Sex Male Sex Unknown Medical Devices Description No Information Available Encounters Description No Information Available Assessments Description No Information Available Plan of Treatment No Information Available Functional Status Description No Information Available Mental Status Description No Information Available Referrals Description No Information Available
--- OUTSIDE RECORDS SUMMARY | 2025-04-17 21:30 | XMS_ITS | Clinical Summary ---
Author Organization [facility] ([place], [place]) Communicado Address [address] [place] [address] Phone Care Team Providers Care Medical Legal Investigator Name Role Phone Philippe He MD Primary Care Provider [phone] Allergies No known active allergies Medications magnesium [...] Problems Problem Noted Date Diagnosed Date A-fib (CMS/[facility] V24, CMS/[facility] V28) 03/17/2024 Assessment & Plan (10/03/2024 5:16 [...] his atrial flutter to be performed at [facility] on December 01, 2024. All questions [...] Future COPD (chronic obstructive pu lmonary disease) ([facility] V24, [facility] V28) 03/17/2024 Assessment & Plan (11/09/2024 5:11 [...] Encounters Date Type Department Care Team Description 03/08/2025 Telephone [facility] - [facility] [address] [place] [address] Provider, Not In System 02/28/2025 Telephone Gastroenterology - [address] [place] [address] Rani Gonzales [place] 02/23/2025 10:01 AM EDT Anesthesia Event [facility] Endoscopy [address] [place] [address] Richard García MD Hard, Shannon, CRNA 02/23/2025 8:44 AM EDT - 02/23/2025 11:59 PM EDT Hospital Encounter [facility] Endoscopy [address] [place] [address] Sal Leung MD Chang, Daniel J, MD Hard, Shannon, CRNA Hx of colonic polyps Discharge Disposition: Home or Self Care 02/05/2025 Telephone Gastroenterology - [place] [address] [place] [address] Jasmine Elizabeth LPN from Last 3 Months Surgical History Surgery Date Site/Laterality Comments CARDIOVERSION DONE ON 10/06/2024 AT [facility] W YZ ABLATION DONE ON 12/01/2024 AT [facility] W JPM INDICATIONS:Symptomatic drug refractory persistent atrial flutter COLONOSCOPY Medical History Medical History Date Comments HTN (hypertension) Atrial fib/flutter, transient (CMS/HCC V24, CMS/ HCC V28) GERD (gastroesophageal reflux disease) COPD (chronic obstructive pulmonary disease) (CM S/HCC V24, CMS/HCC V28) TIA (transient ischemic attack) History of cardioembolic cerebrovascular acciden t (CVA) History of DVT (deep vein thrombosis) Social History Tobacco Use Types Packs/Day Years [...] Sign Reading Time Taken Comments Blood Pressure 142/90 02/23/2025 10:41 AM EDT Pulse 52 02/23/2025 10:41 AM EDT Temperature 36.1 C (97 F) 02/23/2025 10:19 AM EDT Respiratory Rate 23 02/23/2025 10:41 AM EDT Oxygen Saturation 100% 02/23/2025 10:41 AM EDT Inhaled Oxygen Concentration - - Weight 108 kg (238 lb) 02/23/2025 9:05 AM EDT Height 193 cm (6' 4 ) 02/23/2025 9:05 AM EDT Body Mass Index 28.97 02/23/2025 9:05 AM EDT Plan of Treatment Upcoming Encounters Date Type Department Care Team (Late st Contact Info) Description 04/25/2025 12:40 PM EDT Office Visit [facility] Cardiology [facility] [address] [facility] [address] [place] [phone] Sujata Bynum NP [address] [place] [phone] 06/06/2025 1:40 PM EST Office Visit [facility] Cardiology [facility] [address] [place] [phone] Lane Garber NP [address] [place] [address] [address] [place] [phone] Health Maintenance Due Date Last Done Comments DTaP,Tdap,and Td Vaccines (1 - Tdap) 1969 Pneumococcal Vaccine: 50+ Years (1 of 2 - PCV) 1969 Abdominal Aortic Aneurysm (AAA) Screen 06/28/2022 Cholesterol Screening (Lipid Panel) 06/28/2022 Hepatitis C Screening 06/28/2022 Medicare Annual Wellness Visit 06/28/2022 Social Influencers of Health Screening 06/28/2022 Depression Screening 07/26/2024 COVID-19 Vaccine ( season) 2025 05/10/2021, 10/06/2020, 09/13/2020 Influenza Vaccine (#1) 2025 , 05/27/2023, 06/08/2022, Additional history exists Hypertension/CHF/CAD Annual BMP Blood Test 11/27/2025 11/27/2024, 09/30/2024 Falls Risk Assessment 02/23/2026 02/23/2025 Colorectal Cancer Screening: Colonoscopy 02/23/2030 02/23/2025, 11/23/2024 Zoster Vaccines Completed 04/08/2020, 1107/2018, 05/12/2013 RSV Immunization Adult Patients Completed 04/24/2024 HIB [...] on patient's age to complete this topic Medical Devices Implanted Type Area Workplace Relations Adviser Device Identifier Shelf Expiration Date Model / Serial / Lot Device Karthikeyan Finnegan Mvp 6-12f Fem Art - [id number] - [id number] Implanted:Qty: 1 on 12/01/2024 by Darien Mark MD at [facility] Vascular Closure Devices N/A: Groin [employer]- [employer] 09/20/2026 [id number] / [id number] / Plug Fem Artery Closure Vascade Mvp Collagen Ster - [id number] - [id number] Implanted:Qty: 1 on 12/01/2024 by Darien Mark MD at [facility] Vascular Grafts N/A: Groin [employer]- [employer] [id number] 04/17/2026 [id number] / [id number] / Procedures Procedure Name Priority Date/Time Associated Diagnosis Comments COLONOSCOPY Routine 02/23/2025 10:18 AM EDT Hx of colonic polyps TISSUE EXAM Routine 02/23/2025 10:18 AM EDT Hx of colonic polyps BASIC METABOLIC PANEL Routine 11/27/2024 11:39 AM EDT Typical atrial flutter (CMS/HCC V24, CMS/HCC V28) from Last 3 Months or Most Recently Relevant to Health Maintenance Results * COLONOSCOPY Anesthesia - MAC; [facility] ENDOSCOPY (02/23/2025 10:18 AM EDT) Anatomical Region Laterality Modality Endoscopy 02/23/2025 9:56 AM EDT Impressions 02/23/2025 10:18 AM EDT - Diverticulosis in the sigmoid colon and in the descending colon. - One 6 mm polyp in the sigmoid colon, removed with a cold snare. Resected and retrieved. - The examination was otherwise normal on direct and retroflexion views. Recommendation: - Await pathology results. - Repeat colonoscopy in 5 years for surveillance. Narrative 02/23/2025 10:18 AM EDT [facility] GI Patient Name: Hosea Matamoros Procedure Date: 02/23/2025 9:56 AM Date of : 1950 Age: 75 Room: ROOM 15 Gender: Male Note Status: Finalized Attending MD: Sal Leung MD, Procedure Date No Time: 02/23/2025 Procedure: Colonoscopy Indications: High risk colon cancer surveillance: Personal history of colonic polyps Providers: Sal Leung MD Referring MD: Sal Leung MD Medicines: Propofol per Anesthesia Complications: No immediate complications. Estimated Blood Loss: Estimated blood loss was minimal. Procedure: Pre-Anesthesia Assessment: - ASA Grade Assessment: III - A patient with severe systemic disease. After I obtained informed consent, the scope was passed under direct vision. Throughout the procedure, the patient's blood pressure, pulse, and oxygen saturations were monitored continuously.The Olympus Colonoscope was introduced through the anus and advanced to the cecum, identified by appendiceal orifice and ileocecal valve. The colonoscopy was performed without difficulty. The patient tolerated the procedure well. The quality of the bowel preparation was good. Findings: The perianal and digital rectal examinations were normal. Multiple diverticula were found in the sigmoid colon and descending colon. A 6 mm polyp was found in the sigmoid colon. The polyp was sessile. The polyp was removed with a cold snare. Resection and retrieval were complete. The exam was otherwise without abnormality on direct and retroflexion views. Procedure Code(s): --- Professional --- 15391, Colonoscopy, flexible; with removal of tumor(s), polyp(s), or other lesion(s) by snare technique Diagnosis Code(s): --- Professional --- Z86.010, Personal history of colonic polyps D12.5, Benign neoplasm of sigmoid colon K57.30, Diverticulosis of large intestine without perforation or abscess without bleeding CPT copyright 2020 [employer]. All rights reserved. The codes documented in this report are preliminary and upon wine specialist review may be revised to meet current compliance requirements. Sal Leung MD 02/23/2025 10:18:46 AM This report has been signed electronically.Sal Leung MD Number of Addenda: 0 Note Initiated On: 02/23/2025 9:56 AM Scope In: Scope Out: Endoscopy Department at [facility] - [address] [place] [id number] Procedure Note Sal Leung MD - 02/23/2025 [facility] GI Patient Name: Hosea Matamoros Procedure Date: 02/23/2025 9:56 AM Date of : 1950 Age: 75 Room: ROOM 15 Gender: Male Note Status: Finalized Attending MD: Sal Leung MD, Procedure Date No Time: 02/23/2025 Procedure: Colonoscopy Indications: High risk colon cancer surveillance: Personalhistory of colonic polyps Providers: Sal Leung MD Referring MD: Sal Leung MD Medicines: Propofol per Anesthesia Complications: No immediate complications. Estimated Blood Loss: Estimated blood loss was minimal. Procedure: Pre-Anesthesia Assessment: - ASA Grade Assessment: III - A patient with severe systemic disease. After I obtained informed consent, the scope was passed under direct vision. Throughout theprocedure, the patient's blood pressure, pulse, and oxygen saturations were monitored continuously.The Olympus Colonoscope was introduced through the anus and advanced to the cecum, identified by appendiceal orifice and ileocecal valve. The colonoscopy was performed without difficulty. The patient tolerated the procedure well. The quality of the bowel preparation was good. Findings: The perianal and digital rectal examinations were normal. Multiple diverticula were found in the sigmoidcolon and descending colon. A 6 mm polyp was found in the sigmoid colon. Thepolyp was sessile. The polyp was removed with a coldsnare. Resection and retrieval were complete. The exam was otherwise without abnormality ondirect and retroflexion views. Procedure Code(s): --- Professional --- 68647, Colonoscopy, flexible; with removal of tumor(s), polyp(s), or other lesion(s) by snare technique Diagnosis Code(s): --- Professional --- Z86.010, Personal history of colonic polyps D12.5, Benign neoplasm of sigmoid colon K57.30, Diverticulosis of large intestine without perforation or abscess without bleeding CPT copyright 2020 [employer]. All rights reserved. The codes documented in this report are preliminary and upon wine specialist reviewmay be revised to meet current compliance requirements. Sal Leung MD 02/23/2025 10:18:46 AM This report has been signed electronically.Sal Leung MD Number of Addenda: 0 Note Initiated On: 02/23/2025 9:56 AM Scope In: Scope Out: Endoscopy Department at [facility] - [address] [place] [id number] IMPRESSION: - Diverticulosis in the sigmoid colon and in the descending colon. - One 6 mm polyp in the sigmoid colon, removed witha cold snare. Resected and retrieved. - The examination was otherwise normal on directand retroflexion views. Recommendation: - Await pathology results. - Repeat colonoscopy in 5 years for surveillance. Sal Leung MD GI~PROCEDURE ORDERABLES Fin al Result * Tissue exam (02/23/2025 10:18 AM EDT) Final Diagnosis Polyp, sigmoid colon, polypectomy: - Hyperplastic polyp. 02/26/2025 9:47 AM EDT [facility] Gross Description A. Large Intestine, Sigmoid Colon, polyp: Labeled polyp in sig colon . Received in green-tinged formalin is a soft, [place], 0.55 cm in greatest diameter flat to polypoid tissue which is inked black at the base, wrapped in paper and submitted in toto in one cassette, one piece, multiple levels. TS 02/26/2025 9:47 AM EDT [facility] Disclaimer Unless otherwise specified, all tissue is 10% NB formalin fixed and paraffin embedded. 02/26/2025 9:47 AM EDT [facility] Tissue Sigmoid colon structure / Unknown 02/23/2025 10:18 AM EDT 02/23/2025 10:47 AM EDT Sal Leung MD LAB PATHOLOGY ORDERABLES Fi nal Result [facility] [address] [place] [address], * (ABNORMAL) Basic metabolic panel (11/27/2024 11:39 AM EDT) Sodium 142 133 - 145 mmol/L LAB CHEMISTRY METHOD 11/27/2024 1:18 PM EDT [facility] Potassium 4.1 3.5 - 5.5 mmol/L LAB CHEMISTRY METHOD 11/27/2024 1:18 PM T [facility] Chloride 109 96 - 110 mmol/L LAB CHEMISTRY METHOD 11/27/2024 1:[address] [facility] CO2 27 21 - 32 mmol/L LAB CHEMISTRY METHOD 11/27/2024 1:[address] [facility] Anion Gap 6 3 - 11 LAB CHEMISTRY METHOD 11/27/2024 1:18 PM T [facility] Glucose 130(H) 70 - 100 mg/dL LAB CHEMISTRY METHOD 11/27/2024 1:[address] [facility] BUN 14 5 - 25 mg/dL LAB CHEMISTRY METHOD 11/27/2024 1:[address] [facility] Creatinine 1.06 0.70 - 1.30 mg/dL LAB CHEMISTRY METHOD 11/27/2024 1:[address] [facility] eGFR 74 >=60 mL/min/1. 73m2 LAB CHEMISTRY METHOD 11/27/2024 1:[address] [facility] Comment:Calculation based on the Chronic Kidney Disease Epidemiology Collaboration (CKD-EPI) equation refit without adjustment for race. BUN/Creatinine Ratio 13.2 LAB CHEMISTRY METHOD 11/27/2024 1:[address] [facility] Calcium 8.9 8.5 - 10.5 mg/dL LAB CHEMISTRY METHOD 11/27/2024 1:[address] [facility] Blood Venous blood specimen / Unknown Venipuncture / Unknown 11/27/2024 11:39 AM EDT 11/27/2024 12:23 PM EDT us Darien Mark MD LAB BLOOD ORDERABLES Final Res ult [facility] [address] [place] [address], [place] [phone] from Last 3 Months or Most Recently Relevant to Health Maintenance Insurance MEDICARE [facility] Care Teams Medical Legal Investigator Relationship Specialty Start Date End Date Philippe He MD [address] [place] [address] PCP - General Internal Medicine 05/18/24
--- OUTSIDE RECORDS SUMMARY | 2025-04-17 21:30 | XMS_ITS | Clinical Summary ---
Author Organization [facility] Address [address] [place] [address] Care Team Providers Care On Site Property Manager Name Role Phone Philippe He MD Primary Care Provider [phone] Allergies No known active allergies Medications Eliquis [...] Contact Info) Description 05/10/2025 10:00 AM EDT Clinical Support [facility] [address] [facility] [place] [address] Shanti Gibbons Au.D [address] [place] [address] Health Maintenance Due Date Last Done Comments Advance Care Planning 1950 Hepatitis C Virus Screening 1950 DTaP/Tdap/Td Vaccines (1 - Tdap) 1969 Colonoscopy 1995 Pneumococcal Vaccines 50+ (1 of 1 - PCV) 02/05/2000 Zoster (Shingles) Vaccine (1 of 2) 02/05/2000 RSV Vaccine 60 years and old er and Patients (1 - 1-dose 75+ series) 2025 Influenza Vaccine 02/23/2025 COVID-19 Vaccine ( - 2023-2 5 season) 2025 Hepatitis B Vaccines Aged Out No long er eligible based on patient's age to complete this topic Insurance MEDICARE PART A & B [facility] MCR SUPPLEMENT ONLY Care Teams On Site Property Manager Relationship Specialty Start Date End Date Philippe He MD [address] [place] [address] PCP - General 10/16/24
== END ==
LOC: HO.SL 21:17
PROVIDERS: PCP Internal Medicine; Visit Provider Nurse Practitioner Family
DX: R40.0 Somnolence (principal); G47.33 Obstructive sleep apnea (adult) (pediatric)
CPT/HCPCS: 95810; 95811

== ENCOUNTER 2025-04-27 11:46 | Outpatient (AMB) | payer MEDICARE, OTHER, SELFPAY ==
--- OUTSIDE RECORDS SUMMARY | 2025-04-25 12:40 | XMS_ITS | Encounter Summary ---
Author Organization [facility] [place] [address] Care Team Providers Care Commercial Collections Specialist Name Role Phone Philippe He MD Primary Care Provider [phone] Reason for Visit * Reason Comments Follow-up Encounter Details Date Type Department Care Team (Late st Contact Info) Description 04/25/2025 12:40 PM EDT Office Visit [facility] - [facility] [address] [facility] [address] [place] [phone] Sujata Bynum NP [address] [facility] [address] [place] [phone] Typical atrial flutter (CMS/HCC V24, CMS/HCC V28) (Primary Dx) Social History Tobacco Use Types Packs/Day Years Used Date Smoking Tobacco: Former Cigarettes Smokeless Tobacco: Never Alcohol Use Standard Drinks/Week Comments Not Currently 0 (1 standard drink = 0.6 oz pur e alcohol) Interpersonal Safety Answer Date Record ed Physical Abuse Unrecognized value 02/23/2025 Verbal Abuse Unrecognized value 02/23/2025 Sex and Gender Information Value Date Recorded Sex Assigned at Male 03/24/2024 3:00 PM EDT Legal Sex Male 10:59 PM EST Gender Identity Male 03/24/2024 3:00 PM EDT Sexual Orientation Straight 03/24/2024 3: 00 PM EDT documented as of this encounter Last Filed Vital Signs Vital Sign Reading Time Taken Comments Blood Pressure 118/70 04/25/2025 12:33 PM EDT Pulse 57 04/25/2025 12:33 PM EDT Temperature - - Respiratory Rate - - Oxygen Saturation 94% 04/25/2025 12:33 PM EDT Inhaled Oxygen Concentration - - Weight 108 kg (237 lb) 04/25/2025 12:33 PM EDT Height 190.5 cm (6' 3 ) 04/25/2025 12:33 PM EDT Body Mass Index 29.62 04/25/2025 12:33 PM EDT documented in this encounter Plan of Treatment Upcoming Encounters Date Type Department Care Team (Late st Contact Info) Description 06/06/2025 1:40 PM EST Office Visit [facility] - [facility] [address] [place] [address] [address] [place] [address] [address] Garber NP [address] [place] [address] Dr [address] [place] [address] documented as of this encounter Procedures Procedure Name Priority Date/Time Associated Diagnosis Comments ECG 12-LEAD Routine 04/25/2025 1:01 PM EDT Typical atrial flutter (CMS/HCC V24, CMS/HCC V28) documented in this encounter Results * ECG 12 lead (04/25/2025 1:01 PM EDT) Ventricular Rate ECG 57 BPM GEMUSE Atrial Rate 57 BPM GEMUSE P-R Interval 202 ms GEMUSE QRS Duration 84 ms GEMUSE Q-T Interval 420 ms GEMUSE QTc 408 ms GEMUSE P Wave [place] 109 degrees GEMUSE R [place] 47 degrees GEMUSE T [place] 68 degrees GEMUSE ECG Interpretation Sinus bradycardia with Premature atrial complexes Septal infarct , age undetermined Abnormal ECG When compared with ECG of 26-DEC-2024 13:35, Premature atrial complexes are now Present GEMUSE 04/25/2025 12:3 9 PM EDT Sujata Bynum NP ECG ORDERABLES Final Result GEMUSE documented in this encounter Visit Diagnoses Diagnosis Typical atrial flutter (CMS/HCC V24, CMS/[facility] V28)- Primary documented in this encounter Discontinued Medications Medication Sig Discontinue Reason Start Date End Da te busPIRone (BUSPAR) 30 mg tablet Take 1 Tablet by mouth 2 times daily. Dose adjustment 04/25/2025 documented as of this encounter Historical Medications * This list may reflect changes made after this encounter. busPIRone (BUSPAR) 10 mg tablet Take 2 tablets (20 mg total) by mouth 2 (two) times a day. 03/22/2025 folic acid (FOLVITE) 400 mcg tablet Take 1 tablet (0.4 mg total) by mouth 1 (one) time each day. 11/14/2024 Breo Ellipta 100-25 mcg/dose inhaler Inhale 1 puff by mouth 1 (one) time each day. 04/03/2025 added in this encounter Care Teams Commercial Collections Specialist Relationship Specialty Start Date End Date Philippe He MD [address] [place] [address] PCP - General Internal Medicine 05/18/24 documented as of this encounter
[2025-04-27 11:48] VITALS: BP 128/76; PULSE 59; O2SAT 95; BMI 29.2
--- NOTE | 2025-04-27 11:48 | MHC.OFFVIS ---
Vital Signs 04/27/25 11:48 Height 6 ft 4 in Weight 240 lb 4 oz BMI 29.2 BP 128/76 Blood Pressure Location Rt brachial Position Sitting Pulse 59 Pulse Source Pulse Oximeter Pulse Oximetry (%) 95 Oxygen Delivery Method Room Air Intake Visit Reasons: Emphysema, COPD Allergies No Known Allergies Allergy (Verified 04/27/25 11:51) HPI HPI Emphysema, COPD: Details: Hosea is a pleasant 75-year-old male, current 75+ pack year smoker, with underlying COPD, JADIEL on CPAP, Atrial fibrillation, h/o DVT on Eliquis, h/o prostate cancer s/p prostatectomy and HTN. He was initially referred by PCP for further management of COPD and JADIEL. He was previously under the care of [facility] but lost to follow up. He has been undergoing annual lung screenings since 2019, which have shown stable pulmonary nodules measuring up to 4 mm through [facility], his most recent LDCT 04/2025 revealed stable findings. The patient continues with dyspnea on moderate exertion without significant cough or wheezing despite Breo. He also reports consistent use of CPAP therapy for JADIEL unknown severity however has not had oversight in quite some time. DME is [facility]. Reviewed prior records which initially patient required supplemental oxygen however when order was renewed it was only for CPAP therapy, no supplemental oxygen. Today he presents to review in lab PSG. [facility] Medical History (Updated 05/01/25 @ 14:17 by Karly Aaron NP) Prostate cancer Hearing loss DVT (deep venous thrombosis) COPD (chronic obstructive pulmonary disease) Diabetes 1.5, managed as type 2 HTN (hypertension) Surgical History (Updated 06/06/24 @ 15:41 by Puja Conley APRN) H/O prostatectomy Social History Patient Tobacco Use Status: Current everyday Tobacco user Tobacco use type: Cigarette Cigarette Packs Per Day: 0.5 Cigarettes Per Day: 12 Review of Systems Const Denies chills, Denies excessive sweating, Denies fever(s), Denies headache(s) and Denies night sweats Eyes Denies dry eyes, Denies irritation and Denies itchy eyes ENT Reports Normal hearing present, Denies headache(s), Denies nasal congestion, Denies nasal discharge, Denies post nasal drip and Denies sore throat Card Denies chest pain, Denies chest pain at rest, Denies chest pain with activity, Denies claudication, Denies leg edema, Reports dyspnea on exertion, Denies orthopnea and Denies paroxysmal nocturnal dyspnea Resp Denies chest congestion, Denies excessive phlegm production, Denies pain on inspiration, Denies pain with cough, Reports dyspnea on exertion, Denies stridor and Reports wheezing Musc Denies myalgias Neuro Reports Normal hearing present and Denies headache(s) Endo Denies excessive sweating Carlos/Lymph Denies lymphadenopathy Aller/Immun Denies itchy eyes, Denies seasonal rhinorrhea and Reports wheezing Physical Exam Vital Signs: Last Vital Signs Pulse 59 04/27/25 11:48 BP 128/76 04/27/25 11:48 Pulse Ox 95 04/27/25 11:48 Oxygen Delivery Method Room Air 04/27/25 11:48 BMI result Body Mass Index 29.2 Const General: cooperative, healthy appearing, comfortable, no acute distress, well developed and alert Nutritional Appearance: obese Orientation/consciousness: patient oriented x3 Limitations: no limitations HEENT Head: Yes normal to inspection, Yes normocephalic and Yes atraumatic Ears: hearing grossly normal bilaterally and external ears normal Eyes General: appearance normal, both eyes and all related structures Eyelids: Yes eyelids normal Sclerae: sclerae normal EOM: EOMs intact bilaterally Neck Neck: Yes normal visual inspection and Yes no lymphadenopathy Lymphatic: no lymphadenopathy noted Chest Chest palpation & inspection: normal inspection of the chest Resp Effort & Inspection: normal respiratory effort, able to speak in complete sentences, no audible wheezes, no cough, no stridor, not tachypneic, no tripod positioning and no use of accessory muscles Auscultation: diminished lung sounds Cardio Jugular venous distension: no JVD Rate: regular rate Rhythm: regular rhythm Skin Other: warm, dry General skin exam: no rashes or lesions noted Neuro General: patient oriented x3 Cranial nerves: Yes Normal hearing present Cognition (Neuro): normal cognition Gait exam (Neuro): Normal gait present Extrem General: Yes normal to inspection, Yes capillary refill normal, Yes no clubbing, cyanosis or edema and Yes no pedal edema Psych Appearance: grossly normal and well kempt Speech and movement: Normal speech and movement present and Clear speech present Affect: normal affect Attitude: cooperative Thought process: Normal thought process present Thought content: Normal thought content present Insight: Good insight present (Psych) Judgement: Good judgement present (Psych) Results Reviewed Results Reviewed: RESULT: CT Chest LDCT Lung Program CT Chest LDCT Lung Program Reason: Other:; LDCT LUNG CANCER SCREENING PROGRAM, CURRENT SMOKER, 55 PACK YEAR HX; Clinical Question(s): Other:; Special Instructions: BOOK AT [address] [place] [address] BOOK AFTER 04 [address] IN THE LAST 12 MONTHS NO LUNG CA OR SIGNS AND SYMPTOMS OF LUNG CA Visit type: Annual Screening TECHNIQUE: Low-dose helical CT of the chest without IV contrast (Adult Lung Cancer Screening) protocol was performed. Coronal reformats were obtained. Weight-based protocol using automatic tube modulation was used to optimize exposure parameters. CTDIvol Body: 3.56 mGy, DLP Body: 142 mGy*cm. COMPARISON: 04/24/2024 FINDINGS: LUNG NODULES (measured on thin axial series 4): RIGHT lung: No new nodules. Few sub-3 mm nodules annotated on series 4 are not chaged. LEFT lung: No new nodules. Few sub-3 mm nodules annotated on series 4 are not changed. OTHER FINDINGS: Probation And Parole Officer view findings, lines and tubes: None. Trachea and airways: Mild diffuse airway thickening. Patent without evidence of tracheal or endobronchial lesion. Lungs and pleura: Mild centrilobular emphysema.Similar subpleural fibrosis in the nondependent bilateral upper lobes likely secondary to smoking related interstitial lung disease. No effusion or pneumothorax. Mediastinum and norman: No mass or hematoma. No mediastinal or hilar lymphadenopathy. No esophageal abnormality. Stable partially calcified left lower thyroid nodule. Please refer to 09/11/2019 ultrasound report for further details. Heart: Heart is normal in size. No pericardial effusion. Mild coronary artery calcification. Aorta: Mild aortic valve calcifications. Mild vascular calcification but no aneurysm. Pulmonary arteries: Normal caliber. Chest wall soft tissues: No acute abnormality. Diaphragm: Intact. Upper abdomen: Similar thickening of the left adrenal gland. Bones: No acute abnormality. IMPRESSION: 1. LungRad Category: 2 Benign Appearance or Behavior. Pulmonary nodules with a very low likelihood of becoming a clinically active cancer due to size or lack of growth. Continue annual screening with LDCT in 12 months. 2. No significant additional findings requiring further evaluation. Lung-RAD Category Modifier: None. Categorization based on Lung-RADS 2022 criteria. [email or web address] WSN: [id number] Ordering Physician: Edwardo Baldwin Reason For Exam LDCT LUNG CANCER SCREENING PROGRAM, CURRENT SMOKER, 55 PACK YEAR HX;Other: Signature Line Dictated By: Toya Wyman MD Dictated Date/Time: 04/26/25 10:20 p Reviewed By: Toya Wyman MD Signed By: Toya Wyman MD Signed Date/Time: 04/26/25 10:20 pm Transcribed By: MADELINE Assessment & Plan Assessment & Plan (1) COPD (chronic obstructive pulmonary disease): Code(s): J44.9 - Chronic obstructive pulmonary disease, unspecified Category: Medical (2) Nicotine dependence, cigarettes, uncomplicated: Code(s): F17.210 - Nicotine dependence, cigarettes, uncomplicated Category: Medical (3) Nocturnal hypoxemia: Code(s): G47.34 - Idiopathic sleep related nonobstructive alveolar hypoventilation Category: Medical Plan Discussed with the patient the findings of his recent CT scan, which showed stable pulmonary nodules, and the results of his sleep study indicating borderline sleep apnea AHI 0.2, REM AHI 5.2 with nocturnal hypoxemia. Reviewed the need for nighttime oxygen therapy due to nocturnal hypoxemia observed during the sleep study which he was in agreement with. Will d/c CPAP and continue 2L supplemental oxygen NOC. Will send for overnight oximetry to ensure appropriate liter flow. Explained the plan to increase his inhaler dosage to better manage his COPD symptoms and the importance of follow-up to monitor his response to treatment. The patient will continue with annual lung screenings to monitor the stability of pulmonary nodules through [facility]. Smoking cessation reviewed, patient working towards quitting. All questions were answered and patient is in agreement of plan. Will follow up in 6-8 weeks or sooner if needed. Orders: Orders Overnight Pulse Oximetry Today G47.34 - Idiopathic sleep related nonobstructive alveolar hypoventilation Medications: Discontinued fluticasone furoate-vilanterol 100-25 mcg/dose (Breo Ellipta) Discontinued Reason: Patient Completed Course 1 inh inhalation DAILY 60 ea 3RF Coding Level of Care Code Est Pt Level 4 (59526) Diagnoses COPD (chronic obstructive pulmonary disease) J44.9 Nicotine dependence, cigarettes, uncomplicated F17.210 Nocturnal hypoxemia G47.34
--- OUTSIDE RECORDS SUMMARY | 2025-04-27 12:50 | XMS_ITS | Clinical Summary ---
Author Organization [facility] [employer] Address [address] [place] [address] Phone Care Team Providers Care Ludlow Machine Operator Name Role Phone Philippe He MD Primary Care Provider [phone] Allergies No known active allergies Medications magnesium [...] Inhale into the lungs as needed. Active apixaban (ELIQUIS) 5 mg tablet Take [...] 08/22/19 25 026 Active metoprolol tartrate (LOPRESSOR) 100 mg tabletIndications: Essential (primary) hypertension,Atypi evan atrial flutter ([facility] V24, [facility] V28) Take 1 tablet (100 mg total) by mouth 2 (two) times a day. 180 tablet 1 09/20/19 25 Active traZODone (DESYREL) 50 mg tablet Take [...] mouth 1 (one) time each day. Active Breo Ellipta 100-25 mcg/dose inhaler Inhale 1 puff by mouth 1 (one) time each day. 04/03/20 25 Active folic acid (FOLVITE) 400 mcg tablet Take 1 tablet (0.4 mg total) by mouth 1 (one) time each day. 11/15/19 25 Active busPIRone (BUSPAR) 10 mg tablet Take 2 tablets (20 mg total) by mouth 2 (two) times a day. 03/22/20 25 Active busPIRone (BUSPAR) 30 mg tablet Take 1 Tablet by mouth 2 times daily. 025 Discontin ued(Dose adjustmen t) Active Problems Problem Noted Date Diagnosed Date A-fib ([facility] V24, [facility] V28) 03/17/2024 Assessment & Plan (10/03/2024 [...] his atrial flutter to be performed at [facility] on December 01, 2024. All questions [...] Future COPD (chronic obstructive pu lmonary disease) ([facility] V24, [facility] V28) 03/17/2024 Assessment & Plan (11/09/2024 [...] Encounters Date Type Department Care Team Description 04/25/2025 12:40 PM EDT Office Visit [facility] [address] [place] [phone] Sujata Bynum NP Typical atrial flutter (CMS/HCC V24, CMS/HCC V28) (Primary Dx) 03/08/[address] [place] [address] Provider, Not In System 02/28/2025 Telephone Gastroenterology - [address] [facility] [address] [place] [phone] Rani Gonzales MA 02/23/2025 10:01 AM EDT Anesthesia Event [facility] Endoscopy [address] [place] [address] Richard García MD Hard, Shannon, CRNA 02/23/2025 8:44 AM EDT - 02/23/2025 11:59 PM EDT Hospital Encounter [facility] End[facility] [address] [place] [phone] Sal Leung MD Chang, Daniel J, MD Hard, Shannon, CRNA Hx of colonic polyps Discharge Disposition: Home or Self Care 02/05/2025 Telephone Gastroenterology - [place] [address] [place] [phone] Jasmine Elizabeth LPN from Last 3 Months Surgical History Surgery Date Site/Laterality Comments CARDIOVERSION DONE ON 10/06/2024 AT [facility] W YZ ABLATION DONE ON 12/01/2024 AT [facility] W JPM INDICATIONS:Symptomatic drug refractory persistent atrial [...] Pulse 57 04/25/2025 12:33 PM EDT Temperature 36.1 C (97 F) 02/23/2025 10:19 AM EDT Respiratory Rate 23 02/23/2025 10:41 AM EDT Oxygen Saturation 94% 04/25/2025 12:33 PM EDT Inhaled Oxygen Concentration - - Weight 108 kg (237 lb) 04/25/2025 12:33 PM EDT Height 190.5 cm (6' 3 ) 04/25/2025 12:33 PM EDT Body Mass Index 29.62 04/25/2025 12:33 PM EDT Plan of Treatment Upcoming Encounters Date Type Department Care Team (Late st Contact Info) Description 06/06/2025 1:40 PM EST Office Visit [facility] [address] [place] [address] Lane Garber NP [address] [place] [address] [address] [place] [address] Health Maintenance Due Date Last Done Comments DTaP,Tdap,and Td Vaccines (1 - Tdap) 1969 Pneumococcal Vaccine: 50+ Years (1 of 2 - PCV) 1969 Abdominal Aortic Aneurysm (AAA) Screen 06/28/2022 Cholesterol Screening (Lipid Panel) 06/28/2022 Hepatitis C Screening 06/28/2022 Medicare Annual Wellness Visit 06/28/2022 Social Influencers of Health Screening 06/28/2022 Depression Screening 07/26/2024 COVID-19 Vaccine ( season) 2025 05/10/2021, 10/06/2020, 09/13/2020 Hypertension/CHF/CAD Annual BMP Blood Test 11/27/2025 11/27/2024, 09/30/2024 Falls Risk Assessment 02/23/2026 02/23/2025 Colorectal Cancer Screening: Colonoscopy 02/23/2030 02/23/2025, 11/23/2024 Zoster Vaccines Completed 04/08/2020, 07/2018, 05/12/2013 RSV Immunization Adult Patients Completed 04/24/2024 Influenza Vaccine Completed 03/27/2025, , 05/27/2023, Additional history exists HIB Vaccines Aged Out No longer eligi [...] this topic Medical Devices Implanted Type Area Warehouse Delivery Manager Device Identifier Shelf Expiration Date Model / Serial / Lot Device Clsur Vascade Mvp 6-12f Fem Art - [id number] - [id number] Implanted:Qty: 1 on 12/01/2024 by Darien Mark MD at [facility] Vascular Closure Devices N/A: Groin [employer]- [employer] ITEMS 09/20/2026 [id number] / [id number] / Plug Fem Artery Closure Vascade Mvp Collagen Ster - [id number] - [id number] Implanted:Qty: 1 on 12/01/2024 by Darien Mark MD at [facility] Vascular Grafts N/A: Groin [employer]- [employer] ITEM[employer] [id number] 04/17/2026 [id number] / [id number] / Procedures Procedure Name Priority Date/Time Associated Diagnosis Comments ECG 12-LEAD Routine 04/25/2025 1:01 PM EDT Typical atrial flutter (CMS/HCC V24, CMS/HCC V28) COLONOSCOPY Routine 02/23/2025 10:18 AM EDT Hx of colonic polyps TISSUE EXAM Routine 02/23/2025 10:18 AM EDT Hx of colonic polyps BASIC METABOLIC PANEL Routine 11/27/2024 11:39 AM EDT Typical atrial flutter (CMS/HCC V24, CMS/HCC V28) from Last 3 Months or Most Recently Relevant to Health Maintenance Results * ECG 12 lead (04/25/2025 1:01 PM EDT) Ventricular Rate ECG 57 BPM GEMUSE Atrial Rate 57 BPM GEMUSE P-R Interval 202 ms GEMUSE QRS Duration 84 ms GEMUSE Q-T Interval 420 ms GEMUSE QTc 408 ms GEMUSE P Wave [place] 109 degrees GEMUSE R [place] 47 degrees GEMUSE T [place] 68 degrees GEMUSE ECG Interpretation Sinus bradycardia with Premature atrial complexes Septal infarct , age undetermined Abnormal ECG When compared with ECG of 26-DEC-2024 13:35, Premature atrial complexes are now Present GEMUSE 04/25/2025 12:3 9 PM EDT Sujata Bynum GUARD IMMIGRATION ECG ORDERABLES Final Result GEMUSE * COLONOSCOPY Anesthesia - MAC; [facility] ENDOSCOPY (02/23/2025 10:18 AM EDT) Anatomical Region [...] for surveillance. Narrative 02/23/2025 10:18 AM EDT [facility] GI Patient Name: Hosea Matamoros Procedure [...] retroflexion views. Procedure Code(s): --- Professional --- 16535, Colonoscopy, flexible; with removal of tumor(s), polyp(s), or other lesion(s) by snare technique Diagnosis Code(s): --- Professional --- Z86.010, Personal history of colonic polyps D12.5, Benign neoplasm of sigmoid colon K57.30, Diverticulosis of large intestine without perforation or abscess without bleeding CPT copyright 2020 [employer]. All rights reserved. The codes documented in this report are preliminary and upon printed circuit boards router review may be revised to meet current compliance requirements. Sal Leung MD 02/23/2025 10:18:46 AM This report has been signed electronically.Sal Leung MD Number of Addenda: 0 Note Initiated On: 02/23/2025 9:56 AM Scope In: Scope Out: Endoscopy Department at [facility] - [address] [place] [phone] Procedure Note Sal Leung MD - 02/23/2025 [facility] GI Patient Name: Hosea Matamoros Procedure [...] retroflexion views. Procedure Code(s): --- Professional --- 18775, Colonoscopy, flexible; with removal of tumor(s), polyp(s), or other lesion(s) by snare technique Diagnosis Code(s): --- Professional --- Z86.010, Personal history of colonic polyps D12.5, Benign neoplasm of sigmoid colon K57.30, Diverticulosis of large intestine without perforation or abscess without bleeding CPT copyright 2020 [employer]. All rights reserved. The codes documented in this report are preliminary and upon printed circuit boards router reviewmay be revised to meet current compliance requirements. Sal Leung MD 02/23/2025 10:18:46 AM This report has been signed electronically.Sal Leung MD Number of Addenda: 0 Note Initiated On: 02/23/2025 9:56 AM Scope In: Scope Out: Endoscopy Department at [facility] - [address] [place] [phone] IMPRESSION: - Diverticulosis in the sigmoid colon and in the descending colon. - One 6 mm polyp in the sigmoid colon, removed witha cold snare. Resected and retrieved. - The examination was otherwise normal on directand retroflexion views. Recommendation: - Await pathology results. - Repeat colonoscopy in 5 years for surveillance. us Sal Leung MD GI~PROCEDURE ORDERABLES Fin al Result * Tissue exam (02/23/2025 10:18 AM EDT) Final Diagnosis Polyp, sigmoid colon, polypectomy: - Hyperplastic polyp. 02/26/2025 9:47 AM EDT [facility] Gross Description A. Large Intestine, Sigmoid Colon, polyp: Labeled polyp in sig colon . Received in green-tinged formalin is a soft, hoyos, 0.55 cm in greatest diameter flat to polypoid tissue which is inked black at the base, wrapped in paper and submitted in toto in one cassette, one piece, multiple levels. TS 02/26/2025 9:47 AM EDT [facility] Disclaimer Unless otherwise specified, all tissue is 10% NB formalin fixed and paraffin embedded. 02/26/2025 9:47 AM EDT [facility] Tissue Sigmoid colon structure / Unknown 02/23/2025 10:18 AM EDT 02/23/2025 10:47 AM EDT Sal Leung MD LAB PATHOLOGY ORDERABLES Fi nal Result [facility] [address] [place] [address], * (ABNORMAL) Basic metabolic panel (11/27/2024 11:39 AM EDT) Sodium 142 133 - 145 mmol/L LAB CHEMISTRY METHOD 11/27/2024 1:18 PM [facility] Potassium 4.1 3.5 - 5.5 mmol/L LAB CHEMISTRY METHOD 11/27/2024 1:18 PM [facility] Chloride 109 96 - 110 mmol/L LAB CHEMISTRY METHOD 11/27/2024 1:18 PM [facility] CO2 27 21 - 32 mmol/L LAB CHEMISTRY METHOD 11/27/2024 1:18 PM [facility] Anion Gap 6 3 - 11 LAB CHEMISTRY METHOD 11/27/2024 1:18 PM [facility] Glucose 130(H) 70 - 100 mg/dL LAB CHEMISTRY METHOD 11/27/2024 1:18 PM EDT [facility] BUN 14 5 - 25 mg/dL LAB CHEMISTRY METHOD 11/27/2024 1:18 PM EDT [facility] Creatinine 1.06 0.70 - 1.30 mg/dL LAB CHEMISTRY METHOD 11/27/2024 1:18 PM EDT [facility] eGFR 74 >=60 mL/min/1. 73m2 LAB CHEMISTRY METHOD 11/27/2024 1:18 PM EDT [facility] Comment:Calculation based on the Chronic Kidney Disease Epidemiology Collaboration (CKD-EPI) equation refit without adjustment for race. BUN/Creatinine Ratio 13.2 LAB CHEMISTRY METHOD 11/27/2024 1:18 PM EDT [facility] Calcium 8.9 8.5 - 10.5 mg/dL LAB CHEMISTRY METHOD 11/27/2024 1:18 PM EDT [facility] Blood Venous blood specimen / Unknown Venipuncture / Unknown 11/27/2024 11:39 AM EDT 11/27/2024 12:23 PM EDT us Darien Mark MD LAB BLOOD ORDERABLES Final Res ult [facility] [address] [place] [address], from Last 3 Months or Most Recently Relevant to Health Maintenance Insurance MEDICARE [employer] Care Teams Ludlow Machine Operator Relationship Specialty Start Date End Date Philippe He MD [address] [place] [address] PCP - General Internal Medicine 05/18/24
--- OUTSIDE RECORDS SUMMARY | 2025-04-27 12:50 | XMS_ITS | Continuity of Care Document ---
Author Organization [facility] Address [address] [place] [address] Phone [phone] Social History Type Date Description Comments Sex Male Sex Unknown Medical Devices Description No Information Available Encounters Description No Information Available Assessments Description No Information Available Plan of Treatment No Information Available Functional Status Description No Information Available Mental Status Description No Information Available Referrals Description No Information Available
--- OUTSIDE RECORDS SUMMARY | 2025-04-27 12:50 | XMS_ITS | Clinical Summary ---
Author Organization [facility] Address [address] [place] [address] Care Team Providers Care Stretcher Leveler Operator Helper Name Role Phone Philippe He MD Primary Care Provider [phone] Allergies No known active allergies Medications Eliquis [...] Description 05/10/2025 10:00 AM EDT Clinical Support [facility] [place] [address] [facility] [place] [address] Shanti Gibbons Au.D [address] [place] [phone] Health Maintenance Due Date Last Done [...] topic Insurance MEDICARE PART A & B [facility] MCR SUPPLEMENT ONLY Care Teams Stretcher Leveler Operator Helper Relationship Specialty Start Date End Date Philippe He MD [address] [place] [address] PCP - General 10/16/24
== END 2025-04-27 12:18 | disposition home or self-care (01) ==
LOC: HO.HPSW 11:47
PROVIDERS: PCP Internal Medicine; Visit Provider Nurse Practitioner Family
DX: J44.9 Chronic obstructive pulmonary disease, unspecified (principal); F17.210 Nicotine dependence, cigarettes, uncomplicated; G47.34 Idiopathic sleep related nonobstructive alveolar hypoventilation
CPT/HCPCS: 99214

== ENCOUNTER → 2025-04-27 11:46 | Outpatient (BNVA) | payer MEDICARE, OTHER, SELFPAY | PROVIDERS: PCP Internal Medicine; Visit Provider Nurse Practitioner Family | DX: J44.9 Chronic obstructive pulmonary disease, unspecified (principal); G47.34 Idiopathic sleep related nonobstructive alveolar hypoventilation; F17.210 Nicotine dependence, cigarettes, uncomplicated; Z79.01 Long term (current) use of anticoagulants | CPT/HCPCS: 99212 ==

== ENCOUNTER 2025-05-10 10:59 | Outpatient (AMB) | payer MEDICARE, OTHER, SELFPAY ==
--- OUTSIDE RECORDS SUMMARY | 2025-05-10 10:00 | XMS_ITS | Encounter Summary ---
Author Organization [facility] Address [address] [place] [address] Care Team Providers Care Nurse Midwife/Clinical Instructor Name Role Phone Philippe He MD Primary Care Provider [phone] Encounter Details Date Type Department Care Team ([facility] st Contact Info) Description 05/10/2025 10:00 AM EDT Clinical Support [facility] [address], [place] [phone] Shanti Gibbons Au.D [address] [place] [address] Social History Tobacco Use Types Packs/Day Years Used Date Smoking Tobacco: Never Assessed Sex and Gender Information Value Date Recorded Sex Assigned at Not on file Legal Sex Male 10:35 AM EDT Gender Identity Not on file Sexual Orientation Not on file documented as of this encounter Progress Notes * Martine Gupta 05/10/2025 10:00 AM EDT Images from the original note were not included. Encounter Date: 05/10/2025 Patient: Hosea Tucker : 1950 Hearing Aid Check/Service Appointment Pt denied any problems or concerns re: the hearing aids.. Hearing aids cleaned & checked - Changed domes (larger power domes) and filters (cerustop). Brushed & vac'd mics. Functioning well. Pt is still considering Cis but is nervous about them. I encouraged him to at least speak with a CIAudiologist for more information. F/U in 6 months. Martine Gupta documented in this encounter Plan of Treatment Upcoming Encounters Date Type Department Care Team (Late st Contact Info) Description 11/08/2025 11:00 AM EDT Clinical Support [facility] [address] [phone] Shanti Gibbons Au.D [address] [place] [address] documented as of this encounter Visit Diagnoses Not on filedocumented in this encounter Care Teams Nurse Midwife/Clinical Instructor Relationship Specialty Start Date End Date Philippe He MD [facility] [address] [address] PCP - General 10/16/24 documented as of this encounter
--- NOTE | 2025-05-10 11:07 | A.OFFPSYCH_ITS ---
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 Required: No Allergies No Known Allergies Allergy (Verified 04/27/25 11:51) Medication List - Last Reconciled 05/10/25 by Puja Conley APRN apixaban (Eliquis) 5 mg PO BID atorvastatin 10 mg PO DAILY buspirone 20 mg (2 x 10 mg) PO BID cholecalciferol (vitamin D3) (Vitamin D3) 25 mcg PO DAILY fluticasone furoate-vilanterol 200-25 mcg/dose (Breo Ellipta) 1 inh inhalation DAILY lamotrigine ER (Lamictal XR) 200 mg PO DAILY latanoprost 0.005% drps ophthalmic (eye) lorazepam 0.5 mg PO DAILY PRN losartan 100 mg PO DAILY magnesium oxide 400 mg PO DAILY metoprolol tartrate 25 mg PO BID mirtazapine 15 mg (1/2 x 30 mg) PO BEDTIME nifedipine ER 60 mg PO DAILY omeprazole 40 mg PO DAILY trazodone 50 - 100 mg (1 - 2 x 50 mg) PO BEDTIME HPI- Psychiatric Chief Complaint: depression HPI Narrative: pt here for follow up re: depression, anxiety, insomnia. Pt reports improvement; PHQ9=7 and GAD7=5. Pt remains ETOH free since 2020. He reports stable mood. He is taking care of his wifemore as she has mobility problems due to hippain. He is coping well overall. No SI No HI Past Psychiatric History: inpatient [facility] 2018; [facility] IOP 2020 PHP/[facility] fall and 2020 (May) outpatient [facility] outpatient, Dr. Thakkar Jun-Jul 2019, started with this abstract writer September 2019 after going to [facility] with panic attack. Subjective Subjective Subjective Medication Compliance: Yes Side effects from medications: No Review of Systems Medical Review of Systems: unchanged Mental Status Exam Mental Status Exam Patient Appearance: Well Grooomed Patient Orientation: Person, Place, Time and Situation Level of Consciousness: Awake and Appropriate Patient Behavior: Appropriate and Cooperative Mood Description: Cheerful Affect Description: Cheerful Patient Cognition Impaired: No Ability to Follow Directions: Good Speech Pattern: Clear and Appropriate Memory Description: Intact Hallucinations: None Delusions: Not Present Thought Process: Intact and Goal Oriented Thought Content: positive for Intact and positive for Goal Oriented Judgement: Fair Assessment and Plan Assessment & Plan (1) Major depressive disorder, recurrent, moderate: Status: Acute Code(s): F33.1 - Major depressive disorder, recurrent, moderate (2) Panic attacks: Status: Acute Code(s): F41.0 - Panic disorder [episodic paroxysmal anxiety] Plan continue current meds return in 3 months Medications: New magnesium oxide 400 mg PO DAILY 90 tabs 0RF Refilled cholecalciferol (vitamin D3) (Vitamin D3) 25 mcg PO DAILY 90 tabs 0RF lorazepam 0.5 mg PO DAILY PRN 30 tabs 2RF severe anxiety trazodone 50 - 100 mg (1 - 2 x 50 mg) PO BEDTIME 180 tabs 1RF for insomnia buspirone 20 mg (2 x 10 mg) PO BID 180 tabs 1RF lamotrigine ER (Lamictal XR) 200 mg PO DAILY 90 tabs 1RF mirtazapine 15 mg (1/2 x 30 mg) PO BEDTIME 15 tabs 2RF Counseling and coordination of Care Pt. Self Management counseling: Maintenance-social rhythm, Mod caffeine/ETOH intake, Nutrition education and improvement, Sleep hygiene and Problem solving Medication management counseling: Effectiveness, Side effects, Dosing range, Duration, Drug interaction and Adherence Diagnosis and Prognosis Counseling: Accuracy of diagnosis, Prognosis over time, Impact of diagnosis on life functions and Adequacy of current interventions Details: I spent 20 minutes reviewing the record, seeing the patient and documenting in the medical record. Counseling provided to the patient/caregiver as outlined below. Addressed patient/caregiver concerns regarding current medication regime including effective adherence. Addressed patient/caregiver concerns regarding diagnosis and prognosis including accuracy of diagnosis, prognosis over time, impact of diagnosis. Addressed patient/caregiver concerns regarding impact of recent stressors. 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
--- OUTSIDE RECORDS SUMMARY | 2025-05-10 13:57 | XMS_ITS | Clinical Summary ---
Author Organization [facility] Address [address] [place] [address] Care Team Providers Care Industrial Health Engineer Name Role Phone Philippe He MD Primary Care Provider [phone] Allergies No known active allergies Medications Eliquis [...] tablet Take 50 mg by mouth. Active Encounters Date Type Department Care Team Description 05/10/2025 10:00 AM EDT Clinical Support [facility] [address] [phone] Shanti Gibbons Au.D from Last 3 Months Social History Tobacco [...] Description 11/08/2025 11:00 AM EDT Clinical Support [facility] [address] [phone] Shanti Gibbons Au.D [address] [place] [phone] Health Maintenance Due Date Last Done Comments Advance Care Planning 1950 Hepatitis C Virus Screening 1950 DTaP/Tdap/Td Vaccines (1 - Tdap) 1969 Colonoscopy 1995 Pneumococcal Vaccines 50+ (1 of 1 - PCV) 02/05/2000 Zoster (Shingles) Vaccine (1 of 2) 02/05/2000 RSV Vaccine 50 years and old er and Patients (1 - 1-dose 75+ series) 2025 Influenza Vaccine 02/23/2025 COVID-19 Vaccine (2 - 2023-2 5 season) 2025 04/30/2025 Hepatitis B Vaccines Aged Out No long er eligible based on patient's age to complete this topic Insurance ([address] [address] MEDICARE PART A & B [facility] SUPPLEMENT ONLY Care Teams Industrial Health Engineer Relationship Specialty Start Date End Date Philippe He MD [address] [address] PCP - General 10/16/24
--- OUTSIDE RECORDS SUMMARY | 2025-05-10 13:57 | XMS_ITS ---
Continuity of Care Document (CCD) Created on: May 10, 2025 Caitlin Hosea External Reference #: [id number] : [id number] Sex: Male Author Organization [facility] Address [address] [facility] [address] [place] [address] Phone [phone] Social History Type Date Description Comments Sex Male Sex Unknown Medical Devices Description No Information Available Encounters Description No Information Available Assessments Description No Information Available Plan of Treatment No Information Available Functional Status Description No Information Available Mental Status Description No Information Available Referrals Description No Information Available
--- OUTSIDE RECORDS SUMMARY | 2025-05-10 13:57 | XMS_ITS | Clinical Summary ---
Author Organization [facility] [employer] Address [address] [place] [address] Phone Care Team Providers Care Flat Clothier Name Role Phone Philippe He MD Primary Care Provider [phone] Allergies No known active allergies Medications magnesium [...] tabletIndications: Essential (primary) hypertension,Atypi evan atrial flutter ([facility] V24, [facility] V28) Take 1 tablet (100 mg [...] Problems Problem Noted Date Diagnosed Date A-fib ([facility] V24, [facility] V28) 03/17/2024 Assessment & Plan (10/03/2024 [...] his atrial flutter to be performed at [facility] on December 01, 2024. All questions [...] flutter. I will make arrangements for Dr. Vgea to see the patient in consultation. Orders: Cardioversion external; Future COPD (chronic obstructive pu lmonary disease) ([facility] V24, [facility] V28) 03/17/2024 Assessment & Plan (11/09/2024 [...] Description 04/25/2025 12:40 PM EDT Office Visit [facility] [address] [place] [phone] Sujata Bynum NP Typical atrial flutter (CMS/HCC V24, CMS/HCC V28) (Primary Dx) 03/08/[address] [place] [address] Provider, Not In System 02/28/2025 Telephone Gastroenterology - [address] [facility] [address] [facility] [place] [phone] Rani Gonzales PR 02/23/2025 10:01 AM EDT Anesthesia Event [facility] [address] [place] [phone] Richard García MD Hard, Shannon, CRNA 02/23/2025 8:44 AM EDT - 02/23/2025 11:59 PM EDT Hospital Encounter [facility] [address] [place] [phone] Sal Leung MD Chang, Daniel J, MD Hard, Shannon, CRNA Hx of colonic polyps Discharge Disposition: Home or Self Care from Last 3 Months Surgical History Surgery Date Site/Laterality Comments CARDIOVERSION DONE ON 10/06/2024 AT [facility] W YZ ABLATION DONE ON 12/01/2024 AT [facility] W VELVETM INDICATIONS:Symptomatic drug refractory persistent atrial flutter COLONOSCOPY [...] Description 06/06/2025 1:40 PM EST Office Visit [facility] [address] [facility] [address] [place] [phone] Lane Garber NP [address] [place] [address] [address] [place] [address] Health Maintenance Due Date Last Done [...] 02/23/2030 02/23/2025, 11/23/2024 Zoster Vaccines Completed 04/08/2020, 110 07/2018, 05/12/2013 RSV Immunization Adult Patients Completed [...] this topic Medical Devices Implanted Type Area Television Parts Tester Device Identifier Shelf Expiration Date Model / Serial / Lot Device Clsur Vascade Mvp 6-12f Fem Art - [id number] - [id number] Implanted:Qty: 1 on 12/01/2024 by Darien Mark MD at [facility] Vascular Closure Devices N/A: Groin [employer] ITEMS 09/20/2026 [id number] / [id number] / Plug Fem Artery Closure Vascade Mvp Collagen Ster - [id number] - [id number] Implanted:Qty: 1 on 12/01/2024 by Darien Mark MD at [facility] Vascular Grafts N/A: Groin [employer]- [employer] ITEM[employer] [id number] 04/17/2026 [id number] / [id number] / Procedures Procedure Name Priority Date/Time [...] GEMUSE QTc 408 ms GEMUSE P Wave [place] 109 degrees GEMUSE R [place] 47 degrees GEMUSE T [place] 68 degrees GEMUSE ECG Interpretation Sinus bradycardia with Premature atrial complexes When compared with ECG of 26-DEC-2024 13:35, No significant change was found Confirmed by RUBY VEGA ([id number]) on 04/26/2025 5:18:34 PM GEMUSE 04/25/2025 12:3 9 PM EDT 04/26/2025 5:18 PM EDT Sujata Bynum CONGRESSIONAL ASSISTANT ECG ORDERABLES Edited Resul t - Final GEMUSE * COLONOSCOPY Anesthesia - MAC; [facility] ENDOSCOPY (02/23/2025 10:18 AM EDT) Anatomical [...] for surveillance. Narrative 02/23/2025 10:18 AM EDT [facility] GI Patient Name: Hosea Matamoros Procedure [...] retroflexion views. Procedure Code(s): --- Professional --- 89549, Colonoscopy, flexible; with removal of tumor(s), polyp(s), or other lesion(s) by snare technique Diagnosis Code(s): --- Professional --- Z86.010, Personal history of colonic polyps D12.5, Benign neoplasm of sigmoid colon K57.30, Diverticulosis of large intestine without perforation or abscess without bleeding CPT copyright 2020 [employer]. All rights reserved. The codes documented in this report are preliminary and upon grain receiver review may be revised to meet current compliance requirements. Sal Leung MD 02/23/2025 10:18:46 AM This report has been signed electronically.Sal Leung MD Number of Addenda: 0 Note Initiated On: 02/23/2025 9:56 AM Scope In: Scope Out: Endoscopy Department at [facility] - [address] [place] [phone] Procedure Note Sal Leung MD - 02/23/2025 [facility] GI Patient Name: Hosea Matamoros Procedure [...] retroflexion views. Procedure Code(s): --- Professional --- 23836, Colonoscopy, flexible; with removal of tumor(s), polyp(s), or other lesion(s) by snare technique Diagnosis Code(s): --- Professional --- Z86.010, Personal history of colonic polyps D12.5, Benign neoplasm of sigmoid colon K57.30, Diverticulosis of large intestine without perforation or abscess without bleeding CPT copyright 2020 [employer]. All rights reserved. The codes documented in this report are preliminary and upon grain receiver reviewmay be revised to meet current compliance requirements. Sal Leung MD 02/23/2025 10:18:46 AM This report has been signed electronically.Sal Leung MD Number of Addenda: 0 Note Initiated On: 02/23/2025 9:56 AM Scope In: Scope Out: Endoscopy Department at [facility] - [address] [place] [phone] IMPRESSION: - Diverticulosis in the sigmoid colon [...] - Hyperplastic polyp. 02/26/2025 9:47 AM EDT [facility] Gross Description A. Large Intestine, Sigmoid Colon, polyp: Labeled polyp in sig colon . Received in green-tinged formalin is a soft, hoyos, 0.55 cm in greatest diameter flat to polypoid tissue which is inked black at the base, wrapped in paper and submitted in toto in one cassette, one piece, multiple levels. TS 02/26/2025 9:47 AM EDT [facility] Disclaimer Unless otherwise specified, all tissue is 10% NB formalin fixed and paraffin embedded. 02/26/2025 9:47 AM EDT [facility] Tissue Sigmoid colon structure / Unknown 02/23/2025 10:18 AM EDT 02/23/2025 10:47 AM EDT us Sal Leung MD LAB PATHOLOGY ORDERABLES Fi nal Result [facility] [address] [place] [address], * (ABNORMAL) Basic metabolic panel (11/27/2024 11:39 AM EDT) Sodium 142 133 - 145 mmol/L LAB CHEMISTRY METHOD 11/27/2024 1:18 PM [facility] Potassium 4.1 3.5 - 5.5 mmol/L LAB CHEMISTRY METHOD 11/27/2024 1:18 PM [facility] Chloride 109 96 - 110 mmol/L LAB CHEMISTRY METHOD 11/27/2024 1:18 PM [facility] CO2 27 21 - 32 mmol/L LAB CHEMISTRY METHOD 11/27/2024 1:18 PM [facility] Anion Gap 6 3 - 11 LAB CHEMISTRY METHOD 11/27/2024 1:18 PM [facility] Glucose 130(H) 70 - 100 mg/dL LAB CHEMISTRY METHOD 11/27/2024 1:18 PM EDT [facility] BUN 14 5 - 25 mg/dL LAB CHEMISTRY METHOD 11/27/2024 1:18 PM EDT [facility] Creatinine 1.06 0.70 - 1.30 mg/dL LAB CHEMISTRY METHOD 11/27/2024 1:18 PM EDT [facility] eGFR 74 >=60 mL/min/1. 73m2 LAB CHEMISTRY METHOD 11/27/2024 1:18 PM EDT [facility] Comment:Calculation based on the Chronic Kidney Disease Epidemiology Collaboration (CKD-EPI) equation refit without adjustment for race. BUN/Creatinine Ratio 13.2 LAB CHEMISTRY METHOD 11/27/2024 1:18 PM EDT [facility] Calcium 8.9 8.5 - 10.5 mg/dL LAB CHEMISTRY METHOD 11/27/2024 1:18 PM EDT [facility] Blood Venous blood specimen / Unknown Venipuncture / Unknown 11/27/2024 11:39 AM EDT 11/27/2024 12:23 PM EDT us Darien Mark MD LAB BLOOD ORDERABLES Final Res ult [facility] [address] [place] [address], from Last 3 Months or Most Recently Relevant to Health Maintenance Insurance MEDICARE Care Teams Flat Clothier Relationship Specialty Start Date End Date Philippe He MD [address] [place] [address] PCP - General Internal Medicine 05/18/24
== END 2025-05-10 11:18 | disposition home or self-care (01) ==
LOC: HO.HOP 10:59
PROVIDERS: PCP Internal Medicine; Visit Provider Clinical Nurse Specialist Psychiatric/Mental Health
DX: F33.1 Major depressive disorder, recurrent, moderate (principal); F41.0 Panic disorder [episodic paroxysmal anxiety]
CPT/HCPCS: 99213

== ENCOUNTER → 2025-05-10 10:59 | Outpatient (BNVA) | payer MEDICARE, OTHER, SELFPAY | PROVIDERS: PCP Internal Medicine; Visit Provider Clinical Nurse Specialist Psychiatric/Mental Health | DX: J33.1 Polypoid sinus degeneration (principal); F41.0 Panic disorder [episodic paroxysmal anxiety] | CPT/HCPCS: 99212 ==